=== PATIENT | female | born 1935 | race Caucasian/White ===

== ENCOUNTER 2017-01-31 13:53 | Emergency (ER) | payer MEDICARE, BC ==
[2017-01-31 14:23] VITALS: BP 137/62
--- NOTE | 2017-01-31 15:43 | EDM.PDOC ---
ED HPI GENERAL MEDICAL PROBLEM - General Chief Complaint: Lower Extremity Injury/Pain Stated Complaint: RIGHT CALF CONCERN FOR DVT Time Seen by Provider: 01/31/17 14:30 Source of Information: Reports: Patient, Family, Provider History Limitations: Reports: No Limitations - History of Present Illness INITIAL COMMENTS - FREE TEXT/NARRATIVE: 82-year-old female fell a few days ago, has had some intermittent hip and arm pain since that time. Those have improved but she has some bruising of the right lower extremity that was red and warm this morning. Some calls were made to her primary clinic and they sent her to the emergency room. No shortness of breath or fever. Right Groin Pain Score (Numeric/FACES): 1 - Related Data Allergies Allergy/AdvReac Type Severity Reaction Status Date / Time cefazolin Allergy not sure Verified 01/31/17 14:20 levofloxacin [From Levaquin] Allergy Rash Verified 01/31/17 14:20 clindamycin AdvReac Abdominal Verified 01/31/17 14:20 Cramps pork derived (porcine) AdvReac Diarrhea Verified 01/31/17 14:20 Home Meds: Home Meds *Potassium 20 meq PO TID 11/20/12 [History] Allopurinol [Zyloprim] 100 mg PO DAILY 11/20/12 [History] Metoprolol Tartrate 50 mg PO DAILY 11/20/12 [History] Phenytoin Sodium Extended [Dilantin] 100 mg PO BID 11/20/12 [History] Simvastatin [Zocor] 20 mg PO BEDTIME 11/20/12 [History] Warfarin [Coumadin] 3 mg PO ASDIRECTED 11/20/12 [History] Ascorbic Acid [Vitamin C] 500 mg PO DAILY 01/09/13 [History] Docusate Sodium [Colace] 100 mg PO DAILY 01/09/13 [History] Multivitamin [Daily Multiple Vitamin] 1 tab PO DAILY 01/09/13 [History] Acetaminophen 650 mg PO ASDIRECTED 03/29/16 [History] Cholecalciferol (Vitamin D3) [Vitamin D3] 2,000 units PO DAILY 03/29/16 [History ] Torsemide 20 mg PO BID 03/29/16 [History] Triamcinolone Acetonide [Kenalog 0.1% Crm] 1 applic TOP BID 03/29/16 [History] Past Medical History HEENT History: Reports: Hard of Hearing, Impaired Vision Cardiovascular History: Reports: Pacemaker, Other (See Below) 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 Respiratory History: Reports: Pneumonia, Recurrent Genitourinary History: Reports: Renal Calculus 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: Musculoskeletal History: Reports: Fracture Other Musculoskeletal History: broken pelvis Neurological History: Reports: Other (See Below) Other Neuro History: has a small brain tumor Dermatologic History: Reports: Cellulitis - Infectious Disease History Infectious Disease History: Reports: Chicken Pox, Measles, Mumps, Shingles - Past Surgical History HEENT Surgical History: Reports: Cataract Surgery Cardiovascular Surgical History: Reports: Pacer, Vascular Surgery GI Surgical History: Reports: Cholecystectomy Female Surgical History: Reports: Hysterectomy Neurological Surgical History: Reports: Other (See Below) Other Neurological Surgeries/Procedures: removal of part of brain tumor. Social & Family History - Tobacco Use Smoking Status *Q: Never Smoker Second Hand Smoke Exposure: No - Caffeine Use Caffeine Use: Reports: None - Alcohol Use Days Per Week of Alcohol Use: 0 - Recreational Drug Use Recreational Drug Use: No - Living Situation & Occupation Living situation: Reports: Occupation: Retired Review of Systems - Review of Systems Review Of Systems: See Below Constitutional: Denies: Fever Respiratory: Denies: Shortness of Breath Cardiovascular: Denies: Chest Pain GI/Abdominal: Denies: Abdominal Pain, Nausea, Vomiting Genitourinary: Reports: No Symptoms Musculoskeletal: Reports: Arm Pain, Other (Hip pain) Skin: Reports: Bruising, Erythema Neurological: Reports: No Symptoms ED EXAM, GENERAL - Physical Exam Exam: See Below Exam Limited By: No Limitations General Appearance: Alert, No Apparent Distress Respiratory/Chest: No Respiratory Distress, Lungs Clear Cardiovascular: Regular Rate, Rhythm GI/Abdominal: Non-Tender Extremities: Other (Patient has pitting edema both lower extremities, moderately worse on the right leg. Some superficial excoriations on the left castillo are present. On the right she has a fairly new bruise and hematoma along the lateral aspect of the lower right leg. There is some erythema around the bruise.) Course - Vital Signs Last Recorded V/S: Last Vital Signs Temp 97.0 F 01/31/17 14:17 Pulse 66 01/31/17 14:17 Resp 16 01/31/17 14:17 BP 137/62 01/31/17 14:17 Pulse Ox 97 01/31/17 14:17 - Orders/Labs/Meds Labs: Laboratory Tests 01/31/17 Range/Units 14:39 PT 27.5 H (9.5-12.0) sec INR 2.47 H (0.80-1.20) - Re-Assessments/Exams Free Text/Narrative Re-Assessment/Exam: 01/31/17 15:42 Pro time was checked and her INR is therapeutic at 2.47. A DVT study was done of the right leg and was negative. I suspect that this was an inflammatory response to the bruise as she has less erythema and warmth at this time and no fever but they were concerned about an infection. She was given cephalexin to take 3 times a day if it worsens, she is going to give it 24 hours of conservative watching however and if it continues to improve she will not take antibiotic. She is going to call her primary provider when she begins antibiotic if necessary. Departure - Departure Time of Disposition: 17:03 Disposition: Home, Self-Care 01 Condition: Good Clinical Impression: Cellulitis of leg without foot, right Hematoma of leg Qualifiers: Encounter type: initial encounter Laterality: right Qualified Code(s): S80.11XA - Contusion of right lower leg, initial encounter - Discharge Information Instructions: Cellulitis, Adult Referrals: Evelyn Canas NP [Primary Care Provider] - Forms: ED Department Discharge Care Plan Goals: Continue your regular medications, and consider adding antibiotic as prescribed if erythema or discomfort of the leg worsens. Also if you develop a fever you should take the antibiotic. Return to the emergency room anytime if worsening or concerns.
--- NOTE | 2017-02-01 09:19 | US ---
VL Duplex Lwr Ext Veins Ltd Rt FINDINGS: Duplex imaging was performed from the right common femoral through the popliteal veins. The veins demonstrate complete compressibility without evidence of intraluminal thrombus. There is shraddha l phasic variation of the waveforms with respiration. There is augmented flow with calf compression. The patient reports surgery in the region of the right groin. In the groin there is a complex fluid c ollection measuring 5.4 x 1.5 x 2.0 cm. There is no internal vascularity. The finding likely reflects a hematoma. IMPRESSION: 1. There is no evidence for right lower extremity deep venous thrombosis. 2. Complex fluid collection right groin likely representing a hematoma. Clinical correlation recommen ded.
== END 2017-01-31 16:15 | disposition home or self-care (01) ==
LOC: JP.ED 13:53
DX: S80.11XA Contusion of right lower leg, initial encounter (principal); L03.115 Cellulitis of right lower limb; W19.XXXA Unspecified fall, initial encounter; Z88.1 Allergy status to other antibiotic agents; Z88.8 Allergy status to other drugs, medicaments and biological substances; Z91.018 Allergy to other foods; Z79.899 Other long term (current) drug therapy; Z79.01 Long term (current) use of anticoagulants
CPT/HCPCS: 36415; 85610; 93971-26; 93971-RT; 99283; 99284-25

== ENCOUNTER 2017-09-03 14:04 | Emergency (ER) | payer MEDICARE, BC ==
--- NOTE | 2017-09-03 15:18 | EDM.PDOC ---
ED HPI GENERAL MEDICAL PROBLEM - General Chief Complaint: Lower Extremity Injury/Pain Stated Complaint: SWELLING IN LEG Time Seen by Provider: 09/03/17 15:05 Source of Information: Reports: Patient, Old Records, RN History Limitations: Reports: No Limitations - History of Present Illness INITIAL COMMENTS - FREE TEXT/NARRATIVE: 82 yo female here with onset yesterday of L calf pain. Pain was worse last night. No fever. Calf is more swollen than normal. No SOB or pleuritic chest pain. Applied "Flexol" topically last night with some relief. Has a pHx of cellulitis in that leg. 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 (see below) (OTC Flexol(menthol and methylsalicylate)) - Related Data Allergies Allergy/AdvReac Type Severity Reaction Status Date / Time cefazolin Allergy not sure Verified 09/03/17 14:32 levofloxacin [From Levaquin] Allergy Rash Verified 09/03/17 14:32 clindamycin AdvReac Abdominal Verified 09/03/17 14:32 Cramps pork derived (porcine) AdvReac Diarrhea Verified 09/03/17 14:32 Home Meds: Home Meds *Potassium 20 meq PO TID 11/20/12 [History] Allopurinol [Zyloprim] 100 mg PO DAILY 11/20/12 [History] Metoprolol Tartrate 50 mg PO DAILY 11/20/12 [History] Phenytoin Sodium Extended [Dilantin] 100 mg PO BID 11/20/12 [History] Simvastatin [Zocor] 20 mg PO BEDTIME 11/20/12 [History] Warfarin [Coumadin] 3 mg PO ASDIRECTED 11/20/12 [History] Ascorbic Acid [Vitamin C] 500 mg PO DAILY 01/09/13 [History] Docusate Sodium [Colace] 100 mg PO DAILY 01/09/13 [History] Multivitamin [Daily Multiple Vitamin] 1 tab PO DAILY 01/09/13 [History] Acetaminophen 650 mg PO ASDIRECTED 03/29/16 [History] Cholecalciferol (Vitamin D3) [Vitamin D3] 2,000 units PO DAILY 03/29/16 [History ] Torsemide 20 mg PO BID 03/29/16 [History] Past Medical History HEENT History: Reports: Hard of Hearing, Impaired Vision Cardiovascular History: Reports: Pacemaker, Other (See Below) 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 Respiratory History: Reports: Pneumonia, Recurrent Genitourinary History: Reports: Renal Calculus 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: Musculoskeletal History: Reports: Fracture Other Musculoskeletal History: broken pelvis Neurological History: Reports: Other (See Below) Other Neuro History: has a small brain tumor Dermatologic History: Reports: Cellulitis - Infectious Disease History Infectious Disease History: Reports: Chicken Pox, Measles, Mumps, Shingles - Past Surgical History HEENT Surgical History: Reports: Cataract Surgery Cardiovascular Surgical History: Reports: Pacer, Vascular Surgery GI Surgical History: Reports: Cholecystectomy Female Surgical History: Reports: Hysterectomy Neurological Surgical History: Reports: Other (See Below) Other Neurological Surgeries/Procedures: removal of part of brain tumor. Social & Family History - Tobacco Use Smoking Status *Q: Never Smoker - Caffeine Use Caffeine Use: Reports: Soda - Recreational Drug Use Recreational Drug Use: No - Living Situation & Occupation Living situation: Reports: Occupation: Retired Review of Systems - Review of Systems Review Of Systems: See Below Constitutional: Reports: No Symptoms Cardiovascular: Reports: Edema (L calf slightly swollen) Musculoskeletal: Reports: Other (L calf pain) Skin: Reports: No Symptoms Neurological: Reports: No Symptoms ED EXAM, GENERAL - Physical Exam Exam: See Below Exam Limited By: No Limitations General Appearance: Alert, WD/WN, No Apparent Distress Eye Exam: Bilateral Eye: Normal Inspection Ears: Normal External Exam, Normal Canal, Hearing Grossly Normal Ear Exam: Bilateral Ear: Auricle Normal, Canal Normal Nose: Normal Inspection, Normal Mucosa, No Blood Throat/Mouth: Normal Inspection, Normal Lips, Normal Oropharynx, Normal Voice, No Airway Compromise Head: Atraumatic, Normocephalic Neck: Normal Inspection, Supple, Non-Tender Respiratory/Chest: No Respiratory Distress, Lungs Clear, Normal Breath Sounds, No Accessory Muscle Use Cardiovascular: Regular Rate, Rhythm Extremities: Pedal Edema (Trace edema of the L calf/castillo), Other (L calf more tender than the R one. No increased warmth.) Neurological: Alert, Oriented, CN II-XII Intact, Normal Cognition Psychiatric: Normal Affect, Normal Mood Skin Exam: Warm, Dry, Intact, Normal Color, No Rash Lymphatic: No Adenopathy Course - Vital Signs Last Recorded V/S: Last Vital Signs Temp 36.5 C 09/03/17 14:36 Pulse 63 09/03/17 16:27 Resp 16 09/03/17 16:27 BP 151/57 H 09/03/17 16:27 Pulse Ox 97 09/03/17 16:27 - Orders/Labs/Meds Orders: Active Orders 24 hr Category Date Time Status VL Duplex Lwr Ext Veins Ltd Lt [US] Stat Exams 09/03/17 16:09 Taken Labs: Laboratory Tests 09/03/17 09/03/17 09/03/17 Range/Units 15:24 15:24 15:24 WBC 7.5 (4.5-11.0) K/uL RBC 4.38 (3.30-5.50) M/uL Hgb 12.4 (12.0-15.0) g/dL Hct 38.4 (36.0-48.0) % MCV 88 (80-98) fL MCH 28 (27-31) pg MCHC 32 (32-36) % Plt Count 172 (150-400) K/uL D-Dimer, Quantitative 732 H (0.0-400.0) ng/mL C-Reactive Protein 0.97 H (0.0-0.3) mg/dL - Radiology Interpretation Free Text/Narrative:: Venous doppler negative of the L leg. Departure - Departure Time of Disposition: 17:30 Disposition: Home, Self-Care 01 Condition: Good Clinical Impression: Cellulitis of leg, left - Discharge Information Referrals: Jose Bhatti MD [Primary Care Provider] - Forms: ED Department Discharge - My Orders Last 24 Hours: My Active Orders 09/03/17 16:09 VL Duplex Lwr Ext Veins Ltd Lt [US] Stat - Assessment/Plan Last 24 Hours: My Active Orders 09/03/17 16:09 VL Duplex Lwr Ext Veins Ltd Lt [US] Stat
[2017-09-03 16:28] VITALS: BP 151/57
[2017-09-03] MEDS ORDERED: Sulfamethoxazole/Trimethoprim 800-160 MG Tab PO ONE (17:32)
--- NOTE | 2017-09-04 08:49 | US ---
VL Duplex Lwr Ext Veins Ltd Lt INDICATION: elevated d-dimer, calf pain and swelling TECHNIQUE: The deep venous system of left leg imaged, including the common femoral, deep femoral, sup erficial femoral, popliteal, and where visualized, calf veins. Imaging included duplex, compression , and augmentation. COMPARISON: None FINDINGS: There is no evidence of deep venous thrombosis. Other incidental findings: None. IMPRESSION: No evidence of deep venous thrombosis.
== END 2017-09-03 18:03 | disposition home or self-care (01) ==
LOC: JP.ED 14:04
DX: L03.116 Cellulitis of left lower limb (principal); Z79.899 Other long term (current) drug therapy; Z88.1 Allergy status to other antibiotic agents
CPT/HCPCS: 36415; 85027; 85379; 86140; 93971; 99284; A9270

== ENCOUNTER 2018-03-08 16:32 | Inpatient (IN) | payer MEDICARE, BC ==
[2018-03-08] MEDS ORDERED: Albuterol 0.083% 2.5 MG/3 ML Neb Soln NEB PRN (17:46)
[2018-03-08] MEDS ORDERED: Polyethylene Glycol 3350 Powder 17 GM Packet PO PRN (17:48)
[2018-03-08] MEDS ORDERED: Magnesium Hydroxide 400 MG/5 ML Susp 30 ML Cup PO PRN (17:48)
[2018-03-08] MEDS ORDERED: Ondansetron 4 MG Tab.DIS PO PRN (17:48)
[2018-03-08] MEDS ORDERED: Sodium Chloride 0.9% 10 ML Syringe FLUSH PRN (17:48)
--- NOTE | 2018-03-08 18:01 | PCM.HP ---
H&P History of Present Illness - General Date of Service: 03/08/18 Admit Problem/Dx: Admission Diagnosis/Problem Admission Diagnosis/Problem Acute cystitis with hematuria Source of Information: Patient, Family, Provider History Limitations: Reports: No Limitations - History of Present Illness Initial Comments - Free Text/Narative: Jocelyn presents to the hospital as a direct admission from the clinic. She presented to the clinic with concerns about persistent and severe bilateral lower extremity edema. While in the clinic she was noted to have a fever and appeared very short of breath. She reports chronic difficulty with lower extremity edema which has not been responding to medical management though she has not been completely compliant with the mechanical wrappings. She reports onset of shortness of breath last night as well as a mild nonproductive cough. She doesn't think she's been having any fevers and did not feel warm when her temperature was noted to be elevated to greater than 100 in the clinic today. No complaints of chest pain. She sleeps sitting up though she's not sure if she has orthopnea. She does report weakness and fatigue but these are chronic and not dramatically different than usual. Appetite is not great but that's her usual. No change in bowel or bladder habits and no dysuria or increased urinary frequency. In the clinic she had a chest x-ray which showed a moderate size right pleural effusion. White count was normal. Kidney function is near baseline with a GFR in the upper 30s. She was noted to be febrile and tachypneic. - Related Data Allergies/Adverse Reactions: Allergies Allergy/AdvReac Type Severity Reaction Status Date / Time cefazolin Allergy not sure Verified 02/17/18 18:21 levofloxacin [From Levaquin] Allergy Rash Verified 02/17/18 18:21 clindamycin AdvReac Abdominal Verified 02/17/18 18:21 Cramps pork derived (porcine) AdvReac Diarrhea Verified 02/17/18 18:21 Home Medications: Home Meds Allopurinol [Zyloprim] 100 mg PO DAILY 11/20/12 [History] Metoprolol Tartrate 50 mg PO DAILY 11/20/12 [History] Phenytoin Sodium Extended [Dilantin] 100 mg PO DAILY 11/20/12 [History] Docusate Sodium [Colace] 100 mg PO DAILY 01/09/13 [History] Multivitamin [Daily Multiple Vitamin] 1 tab PO DAILY 01/09/13 [History] Acetaminophen 650 mg PO Q4H PRN 03/29/16 [History] Cholecalciferol (Vitamin D3) [Vitamin D3] 2,000 units PO DAILY 03/29/16 [History ] Torsemide 40 mg PO BID 03/29/16 [History] Ascorbic Acid [Vitamin C] 500 mg PO DAILY 02/18/18 [History] Phenytoin 50 mg PO BEDTIME 02/18/18 [History] Potassium Chloride [Klor-Con 10] 20 meq PO BIDAC 02/18/18 [History] Warfarin Sodium 1 mg PO ASDIRECTED 03/06/18 [History] Gabapentin [Neurontin] 300 mg PO BID 03/08/18 [History] Past Medical History HEENT History: Reports: Hard of Hearing, Impaired Vision Cardiovascular History: Reports: Afib, Heart Failure, Pacemaker, Other (See Below) 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 subdural hematoma Endocrine/Metabolic History: Reports: Obesity/BMI 30+ Hematologic History: Reports: Anticoagulation Therapy, Other (See Below) Other Hematologic History: dyslipidemia Dermatologic History: Reports: Cellulitis, Venous Stasis Dermatitis - Infectious Disease History Infectious Disease History: Reports: Chicken Pox, Measles, Shingles - Past Surgical History Head Surgeries/Procedures: Reports: None HEENT Surgical History: Reports: Cataract Surgery Cardiovascular Surgical History: Reports: Pacer, Vascular Surgery GI Surgical History: Reports: Cholecystectomy Female Surgical History: Reports: Hysterectomy Neurological Surgical History: Reports: Other (See Below) Other Neurological Surgeries/Procedures: removal of part of brain tumor. Musculoskeletal Surgical History: Reports: None Dermatological Surgical History: Reports: None Social & Family History - Family History Family Medical History: Noncontributory - Tobacco Use Smoking Status *Q: Never Smoker Second Hand Smoke Exposure: No - Caffeine Use Caffeine Use: Reports: Soda Other Caffeine Use: Kelli Brooke - Recreational Drug Use Recreational Drug Use: No - Living Situation & Occupation Living situation: Reports: Occupation: Retired H&P Review of Systems - Review of Systems: Review Of Systems: See Below Free Text/Narrative: A complete 12 point review of systems was obtained. Pertinent positives and negatives are noted in the history of present illness. All other systems were reviewed and were negative except as noted. Exam - Exam Exam: See Below - Vital Signs Vital Signs: Last Vital Signs Temp 37.1 C 03/08/18 17:00 Pulse 67 03/08/18 17:00 Resp 18 03/08/18 17:00 BP 150/63 H 03/08/18 17:00 Pulse Ox 95 03/08/18 17:00 Weight: 80.059 kg - Exam Quality Assessment: No: Supplemental Oxygen General: Alert, Oriented, Cooperative, Mild Distress (increased work of breathing) HEENT: No: Mucosa Moist & [place] (dry), Scleral Icterus Neck: Supple, Trachea Midline. No: Lymphadenopathy Lungs: Decreased Breath Sounds (moderate with expiration), Other (nearly persistent coughing). No: Normal Respiratory Effort (increased work of breathing ), Wheezing Cardiovascular: Regular Rate, Regular Rhythm, Systolic Murmur, Diastolic Murmur , Gallop/S3 GI/Abdominal Exam: Normal Bowel Sounds, Soft, Non-Tender, No Distention Extremities: Pedal Edema, Increased Warmth (inner thighs) Skin: Warm, Dry, Rash (papular rash medial and lateral thighs) Neuro Extensive - Mental Status: Alert, Oriented x3, Nl Response to Commands Neuro Extensive - Motor, Sensory, Reflexes: CN II-XII Intact. No: Dysarthria, Abnormal Motor, Tremor Psychiatric: Alert, Normal Affect - Patient Data Lab Results Last 24 hrs: White count is 8000, hemoglobin normal and platelets normal Sodium and potassium are normal Creatinine is 1.2 with a GFR in the mid-30s Urinalysis shows greater than 100 white blood cells, 10-20 red blood cells and many bacteria Lactic acid is normal Influenza was negative Imaging Impressions Last 24 hrs: Chest x-ray - radiologist read noted and moderate right pleural effusion noted. There is some concern this is loculated on the radiologist interpretation. CT scan of the chest - images personally reviewed - right pleural effusion is noted but does not appear to be loculated. There is a pulmonary nodule in the right upper lobe. Heart size is enlarged. She has a pacemaker in place. No acute findings on the left side of the chest. - Problem List (1) Acute cystitis with hematuria SNOMED Code(s): 16080406 ICD Code: N30.01 - ACUTE CYSTITIS WITH HEMATURIA Status: Acute Current Visit: Yes (2) Bronchitis SNOMED Code(s): 11834835 ICD Code: J40 - BRONCHITIS, NOT SPECIFIED ACUTE OR CHRONIC Status: Acute Current Visit: Yes (3) Chronic diastolic (congestive) heart failure SNOMED Code(s): 228353813, 614632652 ICD Code: I50.32 - CHRONIC DIASTOLIC (CONGESTIVE) HEART FAILURE Status: Chronic Current Visit: No (4) Severe tricuspid regurgitation SNOMED Code(s): 759384836 ICD Code: I07.1 - RHEUMATIC TRICUSPID INSUFFICIENCY Status: Chronic Current Visit: No (5) Hx of deep venous thrombosis SNOMED Code(s): 340129394 ICD Code: Z86.718 - PERSONAL HISTORY OF OTHER VENOUS THROMBOSIS AND EMBOLISM Status: Chronic Current Visit: No (6) CKD (chronic kidney disease), stage III SNOMED Code(s): 304916506 ICD Code: N18.3 - CHRONIC KIDNEY DISEASE, STAGE 3 (MODERATE) Status: Chronic Current Visit: Yes Problem List Initiated/Reviewed/Updated: Yes Orders Last 24hrs: Active Orders 24 hr Category Date Time Status Patient Status [ADT] Routine ADT 03/08/18 17:48 Ordered Bedrest Bedside Commode [RC] ASDIRECTED Care 03/08/18 17:48 Ordered Intake and Output [RC] QSHIFT Care 03/08/18 17:50 Ordered Notify Provider Vital Signs [RC] ASDIRECTED Care 03/08/18 17:50 Ordered Oxygen Therapy [RC] PRN Care 03/08/18 17:48 Ordered RT Aerosol Therapy [RC] ASDIRECTED Care 03/08/18 17:46 Ordered VTE/DVT Education [RC] Per Unit Routine Care 03/08/18 17:48 Ordered Vital Signs [RC] Q4H Care 03/08/18 17:48 Ordered 2 Gram Sodium Diet [DIET] Diet 03/08/18 Dinner Ordered BASIC METABOLIC PANEL,BMP [CHEM] AM Lab 03/09/18 05:11 Ordered CBC W/O DIFF,HEMOGRAM [HEME] AM Lab 03/09/18 05:11 Ordered CULTURE BLOOD [BC] Urgent Lab 03/08/18 17:45 Ordered CULTURE BLOOD [BC] Urgent Lab 03/08/18 17:45 Ordered CULTURE URINE [RM] Routine Lab 03/08/18 17:46 Ordered INFLUENZA A+B AG SCREEN [RM] Routine Lab 03/08/18 17:44 Ordered INR,PT,PROTHROMBIN TIME [COAG] AM Lab 03/09/18 05:11 Ordered INR,PT,PROTHROMBIN TIME [COAG] Urgent Lab 03/08/18 17:44 Ordered LACTIC ACID [CHEM] Routine Lab 03/08/18 17:48 Ordered Acetaminophen [Tylenol] Med 03/08/18 17:46 Ordered 650 mg PO Q4H PRN Albuterol [Proventil Neb Soln] Med 03/08/18 17:46 Ordered 2.5 mg NEB Q4H PRN Albuterol [Proventil Neb Soln] Med 03/08/18 21:00 Ordered 2.5 mg NEB QIDRT Allopurinol [Zyloprim] Med 03/09/18 09:00 Ordered 100 mg PO DAILY Azithromycin [Zithromax] Med 03/09/18 09:00 Ordered 500 mg PO DAILY Azithromycin [Zithromax] 500 mg Med 03/08/18 17:52 Ordered Sodium Chloride 0.9% [Normal Saline] 250 ml IV ONETIME Docusate Sodium [Colace] Med 03/09/18 09:00 Ordered 100 mg PO DAILY Gabapentin [Neurontin] Med 03/08/18 21:00 Ordered 300 mg PO BID Magnesium Hydroxide [Milk of Magnesia] Med 03/08/18 17:48 Ordered 30 ml PO Q12H PRN Metoprolol Tartrate [Lopressor] Med 03/09/18 09:00 Ordered 50 mg PO DAILY Ondansetron [Zofran ODT] Med 03/08/18 17:48 Ordered 4 mg PO Q6H PRN Phenytoin Med 03/09/18 09:00 Ordered 100 mg PO DAILY Phenytoin [Phenytoin] Med 03/08/18 21:00 Ordered 50 mg PO BEDTIME Polyethylene Glycol 3350 [MiraLAX] Med 03/08/18 17:48 Ordered 17 gm PO DAILY PRN Potassium Chloride [Klor-Con 10] Med 03/09/18 07:30 Ordered 20 meq PO BIDAC Sodium Chloride 0.9% [Saline Flush] Med 03/08/18 17:48 Ordered 10 ml FLUSH ASDIRECTED PRN Torsemide [Demadex] Med 03/08/18 21:00 Ordered 40 mg PO BID cefTRIAXone [Rocephin] 2 gm Med 03/08/18 18:00 Ordered Sodium Chloride 0.9% [Normal Saline] 50 ml IV Q24H Blood Culture x2 Reflex Set [OM.PC] Urgent Oth 03/08/18 17:44 Ordered Saline Lock Insert [OM.PC] Routine Oth 03/08/18 17:48 Ordered Resuscitation Status Routine Resus Stat 03/08/18 17:48 Ordered Medication Orders Acetaminophen (Tylenol) 650 mg PO Q4H PRN PRN Reason: Pain/Fever Albuterol (Proventil Neb Soln) 2.5 mg NEB Q4H PRN PRN Reason: shortness of breath/wheezing Albuterol (Proventil Neb Soln) 2.5 mg NEB QIDRT DOUGLAS Allopurinol (Zyloprim) 100 mg PO DAILY DOUGLAS Azithromycin (Zithromax) 500 mg PO DAILY DOUGLAS Docusate Sodium (Colace) 100 mg PO DAILY DOUGLAS Gabapentin (Neurontin) 300 mg PO BID DOUGLAS Azithromycin 500 mg/ Sodium (Chloride) 250 mls @ 250 mls/hr IV ONETIME ONE Stop: 03/08/18 18:51 Ceftriaxone Sodium 2 gm/ (Sodium Chloride) 50 mls @ 100 mls/hr IV Q24H DOUGLAS Magnesium Hydroxide (Milk Of Magnesia) 30 ml PO Q12H PRN PRN Reason: Constipation Metoprolol Tartrate (Lopressor) 50 mg PO DAILY [facility] Non-Formulary Medication (Phenytoin [Phenytoin]) 50 mg PO BEDTIME DOUGLAS Ondansetron HCl (Zofran Odt) 4 mg PO Q6H PRN PRN Reason: Nausea able to take PO Phenytoin Sodium (Phenytoin) 100 mg PO DAILY [facility] Polyethylene Glycol (Miralax) 17 gm PO DAILY PRN PRN Reason: Constipation Potassium Chloride (Klor-Con M20) 20 meq PO BIDAC [facility] Sodium Chloride (Saline Flush) 10 ml FLUSH ASDIRECTED PRN PRN Reason: Keep Vein Open Torsemide (Demadex) 40 mg PO BID [facility] Assessment/Plan Comment:: ASSESSMENT AND PLAN - Acute cystitis - no symptoms but urine is strongly suggestive of infection and this could be the source of the fever. She may have a component of bronchitis but I suspect respiratory issues are related to the large pleural effusion. -Urine culture -Empiric antibiotic's with ceftriaxone Large right pleural effusion - history of heart failure with preserved ejection fraction and severe tricuspid regurgitation. She has both systolic and diastolic murmurs and I'm concerned she may have some aortic regurgitation. With her progressive lower extremity edema she may have had some decompensation of her heart disease. She will need an echocardiogram for further evaluation. She may need thoracentesis tomorrow. -Discuss feasibility of thoracentesis in the morning -Supplement oxygen if needed -Symptomatic management for cough Heart failure with preserved ejection fraction - History of severe tricuspid regurgitation but has been well compensated recently. Examination concerning for multiple valvular abnormalities. She has had progression of her lower extremity edema that has not been improving despite increases in her diuretics. -Continue diuretics -Mechanical management of lower extremity edema with Dr. 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 INR is 1.7 today and I will hold off on warfarin dosing tonight NK she does have a thoracentesis in the morning. Stage III chronic kidney disease - creatinine down slightly from baseline. Maintenance issues - - DVT prophylaxis - warfarin - GI prophylaxis - not indicated - Nutrition - low sodium - Das catheter - not indicated CODE STATUS - DNR/DNI Admission justification - This patient will be admitted for inpatient services and is medically appropriate meeting medical necessity for inpatient admission as outlined in my documentation. I reasonably expect the patient will require inpatient services that span a period time over 2 midnights. I reasonably expect this patient to be discharged or transferred within 96 hours after admission to the [facility]. Disposition - I would anticipate discharge home with home care versus possibly the snf Primary care physician - Dr Kit Sanderson M.D.
[2018-03-08] MEDS: cefTRIAXone 2 GM in Sodium Chloride 0.9% 50 ML IV SCH (18:43)
[2018-03-08] MEDS ORDERED: Azithromycin 500 MG in Sodium Chloride 0.9% 250 ML IV ONE (19:00)
[2018-03-08] MEDS ORDERED: PHENYTOIN 50 MG PO SCH (21:00)
[2018-03-08] MEDS ORDERED: Phenytoin 25 MG/1 ML Susp ML 237 ML Bottle PO ONE (21:00)
[2018-03-08] MEDS: Gabapentin 300 MG Cap PO SCH (21:13)
[2018-03-08] MEDS: Torsemide 20 MG Tab PO SCH (21:13)
[2018-03-08] MEDS: Albuterol 0.083% 2.5 MG/3 ML Neb Soln NEB SCH (21:13)
[2018-03-09] MEDS: Albuterol 0.083% 2.5 MG/3 ML Neb Soln NEB SCH ×5 (07:13→20:56)
[2018-03-09] MEDS ORDERED: Potassium Chloride 20 MEQ Tab.ER PO SCH (07:30)
[2018-03-09] MEDS: Azithromycin 250 MG Tab PO SCH (08:21)
[2018-03-09] MEDS: Gabapentin 300 MG Cap PO SCH ×2 (08:21→20:52)
[2018-03-09] MEDS: Docusate Sodium 100 MG Cap PO SCH (08:21)
[2018-03-09] MEDS: Phenytoin 100 MG Cap.ER PO SCH (08:21)
[2018-03-09] MEDS: Potassium Chloride 20 MEQ Tab.ER PO SCH ×2 (08:21→17:14)
[2018-03-09] MEDS: Torsemide 20 MG Tab PO SCH ×2 (08:21→20:51)
[2018-03-09] MEDS: Allopurinol 100 MG Tab PO SCH (08:22)
[2018-03-09] MEDS ORDERED: Metoprolol Tartrate 50 MG Tab PO SCH (09:00)
--- NOTE | 2018-03-09 12:10 | CONS ---
DATE OF SERVICE: 03/09/2018 REFERRING PHYSICIAN: CONSULTING PHYSICIAN: Renan Nevarez MD REASON FOR CONSULTATION: Evaluation of the lower extremities. HISTORY OF PRESENT ILLNESS: This is a pleasant 83-year-old female who I have been asked to consult from Dr. Sanderson due to long-standing and ongoing lymphedema and pressure ulcers. This is significantly modified by her ongoing congestive heart failure, which is right heart failure and probably has a now component of left heart failure. The patient has been getting compression wrappings, but there have been some compliance issues with this. She also has some fever, which Dr. Sanderson continues to be working on. PAST MEDICAL HISTORY: Extensive include pacemaker, heart failure as described above, atrial fibrillation, history of pneumonia, diarrhea, kidney stones, subdural hematoma, chronic anticoagulation, cellulitis history, venous stasis dermatitis with history of radiofrequency ablation. PAST SURGICAL HISTORY: Please see Dr. Sanderson' report. SOCIAL HISTORY: She lives at home alone, but does recently have assisted home health care seeker. REVIEW OF SYSTEMS: GENERAL: The patient is stable. HEENT: No symptoms. RESPIRATORY: Some shortness of breath. CARDIOVASCULAR: No chest pain. GASTROINTESTINAL: No specific concerns. NEUROLOGICAL: No changes. PSYCH: No changes. The remainder of review of systems is reviewed and is negative. PHYSICAL EXAMINATION: VITAL SIGNS: Temperature 99.4, blood pressure 133/50, pulse 71, respirations 16, 92% on room air. GENERAL: The patient is resting comfortably. HEENT: Pupils are equal. NECK: Supple. LUNGS: Poor inspiratory effort bilaterally. CARDIOVASCULAR: Regular rhythm and rate. NEUROLOGICAL: Oriented x3. PSYCH: No gross depression. Legs show venous stasis ulcers with lymphedema with a benoit boot bilaterally. LABORATORY RESULTS: Show normal white blood cell count. ASSESSMENT: 1. Lymphedema, chronic. 2. Venous stasis ulcers. PLAN: The patient's underlying etiology of her lymphedema is most likely idiopathic combined with her ongoing and worsening congestive heart failure. She does have a benoit boot on, we will not compress this further as she has controlled congestive heart failure, however, causing a significant fluid overload might be an issue. We will continue to follow her daily. We will keep the dressings intact for the next couple of days and see how she does with respect to this. Renan Nevarez MD /[id number]
--- NOTE | 2018-03-09 12:58 | PCM.PN ---
- General Info Date of Service: 03/09/18 Subjective Update: There were no acute events overnight. CT scan of the chest did reveal a potentially loculated right pleural effusion. This morning she had a thoracentesis with 700 mL of straw-colored fluid removed. Respiratory status has improved since the thoracentesis. Still has a mild cough but in general is feeling better. Lower extremity edema stable and venous stasis dermatitis is slightly better. No fevers overnight. Urine culture is growing a gram-negative cheo. Functional Status: Reports: Pain Controlled, Tolerating Diet - Review of Systems General: Denies: Fever Pulmonary: Reports: Shortness of Breath, Cough Cardiovascular: Reports: Edema - Patient Data Vitals - Most Recent: Last Vital Signs Temp 37.8 C 03/09/18 11:17 Pulse 61 03/09/18 11:17 Resp 16 03/09/18 11:17 BP 112/52 L 03/09/18 11:17 Pulse Ox 91 L 03/09/18 11:17 Weight - Most Recent: 80.059 kg I&O - Last 24 Hours: Intake & Output 03/08/18 03/09/18 03/09/18 22:59 06:59 14:59 Intake Total 300 500 Output Total 150 Balance 300 350 Lab Results Last 24 Hours: Laboratory Results - last 24 hr 03/08/18 03/08/18 03/09/18 Range/Units 17:44 17:48 05:15 WBC 6.6 (4.5-11.0) K/uL RBC 3.91 (3.30-5.50) M/uL Hgb 11.0 L (12.0-15.0) g/dL Hct 33.9 L (36.0-48.0) % MCV 87 (80-98) fL MCH 28 (27-31) pg MCHC 32 (32-36) % Plt Count 184 (150-400) K/uL PT 19.1 H (9.5-12.0) sec INR 1.79 H (0.80-1.20) Sodium (140-148) mmol/L Potassium (3.6-5.2) mmol/L Chloride (100-108) mmol/L Carbon Dioxide (21-32) mmol/L Anion Gap (5.0-14.0) mmol/L BUN (7-18) mg/dL Creatinine (0.6-1.0) mg/dL Est Cr Clr Drug Dosing mL/min Estimated GFR (MDRD) (>60) Glucose (74-106) mg/dL Lactic Acid 1.6 (0.4-2.0) mmol/L Calcium (8.5-10.1) mg/dL 03/09/18 03/09/18 Range/Units 05:15 05:15 WBC (4.5-11.0) K/uL RBC (3.30-5.50) M/uL Hgb (12.0-15.0) g/dL Hct (36.0-48.0) % MCV (80-98) fL MCH (27-31) pg MCHC (32-36) % Plt Count (150-400) K/uL PT 19.4 H (9.5-12.0) sec INR 1.82 H (0.80-1.20) Sodium 135 L (140-148) mmol/L Potassium 4.2 (3.6-5.2) mmol/L Chloride 100 (100-108) mmol/L Carbon Dioxide 24 (21-32) mmol/L Anion Gap 15.2 H (5.0-14.0) mmol/L BUN 30 H D (7-18) mg/dL Creatinine 1.6 H D (0.6-1.0) mg/dL Est Cr Clr Drug Dosing 21.44 mL/min Estimated GFR (MDRD) 31 L (>60) Glucose 107 H (74-106) mg/dL Lactic Acid (0.4-2.0) mmol/L Calcium 8.6 (8.5-10.1) mg/dL Yony Results Last 24 Hours: Microbiology 03/08/18 17:51 Urine Culture - Preliminary Urine, Clean Catch 03/08/18 17:44 Influenza Type A Antigen Screen - Final Nasal, Unspecified NEGATIVE INFLUENZA A VIRUS AG Influenza Type B Antigen Screen - Final NEGATIVE INFLUENZA B VIRUS AG Med Orders - Current: Current Medications Acetaminophen (Tylenol) 650 mg PO Q4H PRN PRN Reason: Pain/Fever Albuterol (Proventil Neb Soln) 2.5 mg NEB Q4H PRN PRN Reason: shortness of breath/wheezing Albuterol (Proventil Neb Soln) 2.5 mg NEB QIDRT [facility] Last Admin: 03/09/18 10:46 Dose: 2.5 mg Allopurinol (Zyloprim) 100 mg PO DAILY [facility] Last Admin: 03/09/18 08:22 Dose: 100 mg Azithromycin (Zithromax) 500 mg PO DAILY [facility] Last Admin: 03/09/18 08:21 Dose: 500 mg Docusate Sodium (Colace) 100 mg PO DAILY [facility] Last Admin: 03/09/18 08:21 Dose: 100 mg Gabapentin (Neurontin) 300 mg PO BID [facility] Last Admin: 03/09/18 08:21 Dose: 300 mg Ceftriaxone Sodium 2 gm/ (Sodium Chloride) 50 mls @ 100 mls/hr IV Q24H [facility] Last Admin: 03/08/18 18:43 Dose: 100 mls/hr Magnesium Hydroxide (Milk Of Magnesia) 30 ml PO Q12H PRN PRN Reason: Constipation Metoprolol Tartrate (Lopressor) 50 mg PO DAILY [facility] Last Admin: 03/09/18 08:22 Dose: 50 mg Non-Formulary Medication (Phenytoin [Phenytoin]) 50 mg PO BEDTIME [facility] Ondansetron HCl (Zofran Odt) 4 mg PO Q6H PRN PRN Reason: Nausea able to take PO Phenytoin Sodium (Phenytoin) 100 mg PO DAILY [facility] Last Admin: 03/09/18 08:21 Dose: 100 mg Polyethylene Glycol (Miralax) 17 gm PO DAILY PRN PRN Reason: Constipation Potassium Chloride (Klor-Con M20) 20 meq PO BIDMEALS [facility] Last Admin: 03/09/18 08:21 Dose: 20 meq Sodium Chloride (Saline Flush) 10 ml FLUSH ASDIRECTED PRN PRN Reason: Keep Vein Open Torsemide (Demadex) 40 mg PO BID [facility] Last Admin: 03/09/18 08:21 Dose: 40 mg Discontinued Medications Azithromycin 500 mg/ Sodium (Chloride) 250 mls @ 250 mls/hr IV ONETIME ONE Stop: 03/08/18 19:59 Last Admin: 03/08/18 19:52 Dose: 250 mls/hr Phenytoin Sodium (Dilantin-125 Susp) 50 mg PO ONETIME ONE Stop: 03/08/18 21:01 Last Admin: 03/08/18 21:13 Dose: 50 mg - Exam Quality Assessment: No: Supplemental Oxygen General: Alert, Oriented, Cooperative, No Acute Distress Lungs: Normal Respiratory Effort, Crackles (both bases) Cardiovascular: Regular Rate, Regular Rhythm, Murmurs GI/Abdominal Exam: Soft, No Distention Extremities: Pedal Edema Skin: Rash (erythema both medial thighs near knees) Psy/Mental Status: Alert, Normal Affect - Problem List & Annotations (1) Acute cystitis with hematuria SNOMED Code(s): 67415636 Code(s): N30.01 - ACUTE CYSTITIS WITH HEMATURIA Status: Acute Current Visit: Yes (2) Bronchitis SNOMED Code(s): 75333372 Code(s): J40 - BRONCHITIS, NOT SPECIFIED ACUTE OR CHRONIC Status: Acute Current Visit: Yes (3) Chronic diastolic (congestive) heart failure SNOMED Code(s): 883304404, 818251135 Code(s): I50.32 - CHRONIC DIASTOLIC (CONGESTIVE) HEART FAILURE Status: Chronic Current Visit: No (4) Severe tricuspid regurgitation SNOMED Code(s): 127106804 Code(s): I07.1 - RHEUMATIC TRICUSPID INSUFFICIENCY Status: Chronic Current Visit: No (5) Hx of deep venous thrombosis SNOMED Code(s): 725214421 Code(s): Z86.718 - PERSONAL HISTORY OF OTHER VENOUS THROMBOSIS AND EMBOLISM Status: Chronic Current Visit: No (6) CKD (chronic kidney disease), stage III SNOMED Code(s): 327914488 Code(s): N18.3 - CHRONIC KIDNEY DISEASE, STAGE 3 (MODERATE) Status: Chronic Current Visit: Yes - Problem List Review Problem List Initiated/Reviewed/Updated: Yes - My Orders Last 24 Hours: My Active Orders 03/08/18 17:44 CULTURE BLOOD [BC] Urgent Blood Culture x2 Reflex Set [OM.PC] Urgent 03/08/18 17:46 RT Aerosol Therapy [RC] ASDIRECTED Acetaminophen [Tylenol] 650 mg PO Q4H PRN Albuterol [Proventil Neb Soln] 2.5 mg NEB Q4H PRN 03/08/18 17:48 Patient Status [ADT] Routine Bedrest Bedside Commode [RC] ASDIRECTED Oxygen Therapy [RC] PRN VTE/DVT Education [RC] Per Unit Routine Vital Signs [RC] Q4H Magnesium Hydroxide [Milk of Magnesia] 30 ml PO Q12H PRN Ondansetron [Zofran ODT] 4 mg PO Q6H PRN Polyethylene Glycol 3350 [MiraLAX] 17 gm PO DAILY PRN Sodium Chloride 0.9% [Saline Flush] 10 ml FLUSH ASDIRECTED PRN Saline Lock Insert [OM.PC] Routine Resuscitation Status Routine 03/08/18 17:50 Intake and Output [RC] QSHIFT Notify Provider Vital Signs [RC] ASDIRECTED 03/08/18 17:51 CULTURE URINE [RM] Routine 03/08/18 18:00 cefTRIAXone [Rocephin] 2 gm Sodium Chloride 0.9% [Normal Saline] 50 ml IV Q24H 03/08/18 18:14 Chest wo Cont [CT] Routine 03/08/18 18:15 Notify Provider Consults [RC] ASDIRECTED Consult to Physician [CONS] Routine 03/08/18 18:30 CULTURE BLOOD [BC] Urgent 03/08/18 21:00 Albuterol [Proventil Neb Soln] 2.5 mg NEB QIDRT Gabapentin [Neurontin] 300 mg PO BID Phenytoin [Phenytoin] 50 mg PO BEDTIME Torsemide [Demadex] 40 mg PO BID 03/08/18 Dinner 2 Gram Sodium Diet [DIET] 03/09/18 08:00 Potassium Chloride [Klor-Con M20] 20 meq PO BIDMEALS 03/09/18 09:00 Allopurinol [Zyloprim] 100 mg PO DAILY Azithromycin [Zithromax] 500 mg PO DAILY Docusate Sodium [Colace] 100 mg PO DAILY Metoprolol Tartrate [Lopressor] 50 mg PO DAILY Phenytoin 100 mg PO DAILY 03/09/18 09:29 US Guidance Thoracentesis NC [US] Routine 03/09/18 12:56 CELL COUNT,BODY FLUID [BF] Routine CULTURE BODY FLUID + SMEAR [RM] Urgent 03/09/18 14:00 Spironolactone [Aldactone] 25 mg PO ONETIME ONE 03/10/18 09:00 Metoprolol Succinate [Toprol XL] 50 mg PO DAILY Spironolactone [Aldactone] 25 mg PO DAILY 03/11/18 07:00 Echo Comp wo Cont [US] Routine - Plan Plan:: ASSESSMENT AND PLAN - Acute cystitis - no symptoms but urine is strongly suggestive of infection and this could be the source of the fever. Urine culture with a gram-negative cheo but identification pending. -Follow-up Urine culture -Empiric antibiotic's with ceftriaxone Large right pleural effusion - history of heart failure with preserved ejection fraction and severe tricuspid regurgitation. Transudative effusion likely secondary to congestive heart failure. Symptomatically much better after thoracentesis. -Follow-up culture and thoracentesis testing -Supplement oxygen if needed -Symptomatic management for cough Heart failure with preserved ejection fraction - History of severe tricuspid regurgitation but has been well compensated recently. Examination concerning for multiple valvular abnormalities. She has had progression of her lower extremity edema that has not been improving despite increases in her diuretics. -Continue diuretics -Start spironolactone -Change metoprolol to long-acting succinate formulation -Mechanical management of lower extremity edema/ stasis ulcers with Dr. Nevarez consultation -Continue medical management for congestive heart failure Chronic kidney disease stage III - creatinine near baseline at this time but slightly down from where she normally runs. 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 plan to restart warfarin today. Stage III chronic kidney disease - creatinine down slightly from baseline. Maintenance issues - - DVT prophylaxis - warfarin - GI prophylaxis - not indicated - Nutrition - low sodium Disposition - I would anticipate discharge home with home care versus possibly the senior living Kit Sanderson M.D.
[2018-03-09] MEDS ORDERED: Spironolactone 25 MG Tab PO ONE (14:00)
[2018-03-09] MEDS: cefTRIAXone 2 GM in Sodium Chloride 0.9% 50 ML IV SCH (17:14)
[2018-03-09] MEDS: PHENYTOIN 50 MG PO SCH (20:52)
[2018-03-10] MEDS: Acetaminophen 325 MG Tab PO PRN ×3 (00:01→18:41)
[2018-03-10] MEDS: guaiFENesin 100 MG/5 ML Soln 10 ML UD Cup PO PRN ×3 (00:40→20:59)
[2018-03-10] MEDS: Albuterol 0.083% 2.5 MG/3 ML Neb Soln NEB SCH ×4 (08:01→21:16)
[2018-03-10] MEDS: Potassium Chloride 20 MEQ Tab.ER PO SCH ×2 (08:16→16:52)
[2018-03-10] MEDS: Torsemide 20 MG Tab PO SCH ×2 (08:16→21:17)
[2018-03-10] MEDS: Docusate Sodium 100 MG Cap PO SCH (08:16)
[2018-03-10] MEDS: Gabapentin 300 MG Cap PO SCH ×2 (08:17→21:17)
[2018-03-10] MEDS: Phenytoin 100 MG Cap.ER PO SCH (08:17)
[2018-03-10] MEDS: Metoprolol Succinate 50 MG Tab.ER PO SCH (08:17)
[2018-03-10] MEDS: Azithromycin 250 MG Tab PO SCH (08:18)
[2018-03-10] MEDS: Allopurinol 100 MG Tab PO SCH (08:22)
[2018-03-10] MEDS ORDERED: Spironolactone 25 MG Tab PO SCH (09:00)
--- NOTE | 2018-03-10 11:00 | PN ---
DATE OF SERVICE: 03/10/2018 SUBJECTIVE: The patient is doing very well. Pain is well controlled. She is resting comfortably. OBJECTIVE: VITAL SIGNS: Stable. SKIN: Leg dressings are intact. No abnormal sequelae from the thoracentesis. ASSESSMENT: Status post thoracentesis and chronic lymphedema. PLAN: Continue the wraps. We will follow intermittently here with respect to the patient. Renan Nevarez MD /[id number]
--- NOTE | 2018-03-10 11:50 | PCM.PN ---
- General Info Date of Service: 03/10/18 Subjective Update: Jocelyn was admitted from the clinic on March 08 for management of fever, shortness of breath and urinary tract infection as well as significant bilateral lower extremity edema/lymphedema. CT scan of the chest revealed a large pleural effusion in the this was drained the morning after admission. Urine culture has grown out pansensitive Escherichia coli. She continues to feel short of breath and has a cough. Edema has improved some and the dermatitis associated with the edema has been improving. Overnight she developed left lower quadrant abdominal pain that is worse with coughing. She had 2 episodes of diarrhea last night but none today. She had a fever to 101.7 last night. She became very confused after receiving her first dose of spironolactone yesterday afternoon. Functional Status: Reports: Pain Controlled, Tolerating Diet - Review of Systems General: Reports: Fever Pulmonary: Reports: Cough Gastrointestinal: Reports: Abdominal Pain - Patient Data Vitals - Most Recent: Last Vital Signs Temp 36.4 C 03/10/18 07:27 Pulse 62 03/10/18 11:02 Resp 20 03/10/18 07:27 BP 121/51 L 03/10/18 08:17 Pulse Ox 95 03/10/18 11:02 Weight - Most Recent: 80.059 kg I&O - Last 24 Hours: Intake & Output 03/09/18 03/10/18 03/10/18 22:59 06:59 14:59 Intake Total 50 120 Balance 50 120 Lab Results Last 24 Hours: Laboratory Results - last 24 hr 03/09/18 03/10/18 03/10/18 Range/Units 12:56 04:41 04:41 WBC 9.2 (4.5-11.0) K/uL RBC 3.89 (3.30-5.50) M/uL Hgb 10.9 L (12.0-15.0) g/dL Hct 33.5 L (36.0-48.0) % MCV 86 (80-98) fL MCH 28 (27-31) pg MCHC 33 (32-36) % Plt Count 183 (150-400) K/uL PT 25.2 H (9.5-12.0) sec INR 2.41 H (0.80-1.20) Sodium (140-148) mmol/L Potassium (3.6-5.2) mmol/L Chloride (100-108) mmol/L Carbon Dioxide (21-32) mmol/L Anion Gap (5.0-14.0) mmol/L BUN (7-18) mg/dL Creatinine (0.6-1.0) mg/dL Est Cr Clr Drug Dosing mL/min Estimated GFR (MDRD) (>60) Glucose (74-106) mg/dL Calcium (8.5-10.1) mg/dL Fluid Type Thoracentesis fluid Fluid WBC 63 /ul Fluid RBC 2250 /ul Fluid Diff Comment Fluid Mononuclear Cell 80 % Fl Polymorphonucl Cell 20 % 03/10/18 Range/Units 04:41 WBC (4.5-11.0) K/uL RBC (3.30-5.50) M/uL Hgb (12.0-15.0) g/dL Hct (36.0-48.0) % MCV (80-98) fL MCH (27-31) pg MCHC (32-36) % Plt Count (150-400) K/uL PT (9.5-12.0) sec INR (0.80-1.20) Sodium 132 L (140-148) mmol/L Potassium 4.5 (3.6-5.2) mmol/L Chloride 98 L (100-108) mmol/L Carbon Dioxide 22 (21-32) mmol/L Anion Gap 16.5 H (5.0-14.0) mmol/L BUN 40 H (7-18) mg/dL Creatinine 1.8 H (0.6-1.0) mg/dL Est Cr Clr Drug Dosing 19.06 mL/min Estimated GFR (MDRD) 27 L (>60) Glucose 128 H (74-106) mg/dL Calcium 8.5 (8.5-10.1) mg/dL Fluid Type Fluid WBC /ul Fluid RBC /ul Fluid Diff Comment Fluid Mononuclear Cell % Fl Polymorphonucl Cell % Yony Results Last 24 Hours: Microbiology 03/09/18 13:13 Gram Stain - Final Thoracentesis Fluid Body Fluid Culture - Preliminary NO GROWTH AFTER 1 DAY 03/08/18 17:51 Urine Culture - Final Urine, Clean Catch Escherichia Coli 03/08/18 18:30 Aerobic Blood Culture - Preliminary Blood - Artery NO GROWTH AFTER 1 DAY Anaerobic Blood Culture - Preliminary NO GROWTH AFTER 1 DAY 03/08/18 17:44 Aerobic Blood Culture - Preliminary Blood - Venous NO GROWTH AFTER 1 DAY Anaerobic Blood Culture - Preliminary NO GROWTH AFTER 1 DAY Med Orders - Current: Current Medications Acetaminophen (Tylenol) 650 mg PO Q4H PRN PRN Reason: Pain/Fever Last Admin: 03/10/18 07:49 Dose: 650 mg Albuterol (Proventil Neb Soln) 2.5 mg NEB Q4H PRN PRN Reason: shortness of breath/wheezing Last Admin: 03/09/18 22:21 Dose: 2.5 mg Albuterol (Proventil Neb Soln) 2.5 mg NEB QIDRT [facility] Last Admin: 03/10/18 11:00 Dose: 2.5 mg Allopurinol (Zyloprim) 100 mg PO DAILY [facility] Last Admin: 03/10/18 08:22 Dose: 100 mg Azithromycin (Zithromax) 500 mg PO DAILY [facility] Last Admin: 03/10/18 08:18 Dose: 500 mg Docusate Sodium (Colace) 100 mg PO DAILY [facility] Last Admin: 03/10/18 08:16 Dose: 100 mg Gabapentin (Neurontin) 300 mg PO BID [facility] Last Admin: 03/10/18 08:17 Dose: 300 mg Guaifenesin (Robitussin) 200 mg PO Q4H PRN PRN Reason: Cough Last Admin: 03/10/18 07:49 Dose: 200 mg Ceftriaxone Sodium 2 gm/ (Sodium Chloride) 50 mls @ 100 mls/hr IV Q24H [facility] Last Admin: 03/09/18 17:14 Dose: 100 mls/hr Magnesium Hydroxide (Milk Of Magnesia) 30 ml PO Q12H PRN PRN Reason: Constipation Metoprolol Succinate (Toprol Xl) 50 mg PO DAILY [facility] Last Admin: 03/10/18 08:17 Dose: 50 mg Ondansetron HCl (Zofran Odt) 4 mg PO Q6H PRN PRN Reason: Nausea able to take PO Phenytoin 50mg Chew (Tab (Ptom)) 0 each PO BEDTIME [facility] Last Admin: 03/09/18 20:52 Dose: 1 each Phenytoin Sodium (Phenytoin) 100 mg PO DAILY [facility] Last Admin: 03/10/18 08:17 Dose: 100 mg Polyethylene Glycol (Miralax) 17 gm PO DAILY PRN PRN Reason: Constipation Potassium Chloride (Klor-Con M20) 20 meq PO BIDMEALS [facility] Last Admin: 03/10/18 08:16 Dose: 20 meq Sodium Chloride (Saline Flush) 10 ml FLUSH ASDIRECTED PRN PRN Reason: Keep Vein Open Torsemide (Demadex) 40 mg PO BID [facility] Last Admin: 03/10/18 08:16 Dose: 40 mg Discontinued Medications Azithromycin 500 mg/ Sodium (Chloride) 250 mls @ 250 mls/hr IV ONETIME ONE Stop: 03/08/18 19:59 Last Admin: 03/08/18 19:52 Dose: 250 mls/hr Metoprolol Tartrate (Lopressor) 50 mg PO DAILY [facility] Last Admin: 03/09/18 08:22 Dose: 50 mg Phenytoin Sodium (Dilantin-125 Susp) 50 mg PO ONETIME ONE Stop: 03/08/18 21:01 Last Admin: 03/08/18 21:13 Dose: 50 mg Spironolactone (Aldactone) 25 mg PO DAILY [facility] Spironolactone (Aldactone) 25 mg PO ONETIME ONE Stop: 03/09/18 14:01 Last Admin: 03/09/18 14:00 Dose: 25 mg Warfarin Sodium (Coumadin) 3 mg PO ONETIME ONE Stop: 03/09/18 16:41 Last Admin: 03/09/18 17:15 Dose: 3 mg - Exam Quality Assessment: No: Supplemental Oxygen General: Alert, Oriented, Cooperative, No Acute Distress Lungs: Normal Respiratory Effort, Decreased Breath Sounds (both bases), Crackles (both bases), Other (nearly persistent coughing ) Cardiovascular: Regular Rate, Regular Rhythm, Murmurs GI/Abdominal Exam: Normal Bowel Sounds, Soft, Non-Tender, No Distention Extremities: Pedal Edema Skin: Warm, Dry, Rash (much improved with some residual erythema left medial thigh ) Psy/Mental Status: Alert, Normal Affect - Problem List & Annotations (1) Acute cystitis with hematuria SNOMED Code(s): 43053295 Code(s): N30.01 - ACUTE CYSTITIS WITH HEMATURIA Status: Acute Current Visit: Yes (2) Bronchitis SNOMED Code(s): 14607745 Code(s): J40 - BRONCHITIS, NOT SPECIFIED ACUTE OR CHRONIC Status: Acute Current Visit: Yes (3) Chronic diastolic (congestive) heart failure SNOMED Code(s): 275523960, 665303828 Code(s): I50.32 - CHRONIC DIASTOLIC (CONGESTIVE) HEART FAILURE Status: Chronic Current Visit: No (4) Severe tricuspid regurgitation SNOMED Code(s): 092965976 Code(s): I07.1 - RHEUMATIC TRICUSPID INSUFFICIENCY Status: Chronic Current Visit: No (5) Hx of deep venous thrombosis SNOMED Code(s): 073545989 Code(s): Z86.718 - PERSONAL HISTORY OF OTHER VENOUS THROMBOSIS AND EMBOLISM Status: Chronic Current Visit: No (6) CKD (chronic kidney disease), stage III SNOMED Code(s): 181304960 Code(s): N18.3 - CHRONIC KIDNEY DISEASE, STAGE 3 (MODERATE) Status: Chronic Current Visit: Yes - Problem List Review Problem List Initiated/Reviewed/Updated: Yes - My Orders Last 24 Hours: My Active Orders 03/09/18 13:13 CULTURE BODY FLUID + SMEAR [RM] Urgent 03/09/18 16:41 Up With Assistance [RC] ASDIRECTED Up to Chair [RC] QID 03/09/18 21:00 Patient's Own Medication [Ptom] 0 each PO BEDTIME 03/10/18 00:15 guaiFENesin [Robitussin] 200 mg PO Q4H PRN 03/10/18 09:00 Metoprolol Succinate [Toprol XL] 50 mg PO DAILY 03/10/18 11:47 Benzonatate [Tessalon Perles] 100 mg PO TID PRN 03/10/18 11:48 Abdomen Pelvis wo Cont [CT] Routine 03/10/18 13:00 Warfarin [Coumadin] 2 mg PO DAILY@1300 03/11/18 05:00 BASIC METABOLIC PANEL,BMP [CHEM] Timed CBC W/O DIFF,HEMOGRAM [HEME] Timed (1) INR,PT,PROTHROMBIN TIME [COAG] Timed 03/11/18 07:00 PT Evaluation and Treatment [CONS] Routine Echo Comp wo Cont [US] Routine - Plan Plan:: ASSESSMENT AND PLAN - Left lower quadrant abdominal pain - started last night and had 2 episodes of diarrhea associated as well as a fever greater than 101 last night. Exam is relatively benign at this time. Could be diverticulitis versus inflammatory versus other. -CT scan of the abdomen and pelvis -Adjust antibiotics based on results Acute cystitis - no symptoms but urine is strongly suggestive of infection and this could be the source of the fever. Urine culture grew out pansensitive Escherichia coli. -Follow-up Urine culture -Continue current antibiotics, they will be adjusted based on CAT scan results Large right pleural effusion - history of heart failure with preserved ejection fraction and severe tricuspid regurgitation. Transudative effusion likely secondary to congestive heart failure. Symptomatically much better after thoracentesis initially but now has an increase in shortness of breath and increased cough. She does have persistent effusion on the right noted on the follow-up chest x-ray. -Follow-up culture and thoracentesis testing -Supplement oxygen if needed -Symptomatic management for cough Heart failure with preserved ejection fraction - History of severe tricuspid regurgitation but has been well compensated recently. Examination concerning for multiple valvular abnormalities. Edema has improved during the course of the hospital stay. She is using mechanical compression for the lower half of her legs. We did trial spironolactone yesterday but she became very confused after was administered. -Continue diuretics -Discontinue spironolactone -Change metoprolol to long-acting succinate formulation -Mechanical management of lower extremity edema/ stasis ulcers with Dr. Nevarez consultation -Continue medical management for congestive heart failure Chronic kidney disease stage III - creatinine near baseline at this time but slightly down from where she normally runs. 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 Continuing warfarin. Maintenance issues - - DVT prophylaxis - warfarin - GI prophylaxis - not indicated - Nutrition - low sodium Disposition - I would anticipate discharge home with home care versus possibly the [place] [facility] Kit Sanderson M.D.
[2018-03-10] MEDS: cefTRIAXone 2 GM in Sodium Chloride 0.9% 50 ML IV SCH (17:02)
[2018-03-10] MEDS: Benzonatate 100 MG Cap PO PRN (18:43)
[2018-03-10] MEDS: Brimonidine 0.2% Ophth Soln 5 ML Bottle EYEBOTH SCH (21:17)
[2018-03-10] MEDS: PHENYTOIN 50 MG PO SCH (21:17)
[2018-03-10] MEDS: Timolol Maleate 0.5% Ophth Soln 5 ML Bottle EYEBOTH SCH (22:15)
[2018-03-10] MEDS: Latanoprost 0.005% Ophth Soln 2.5 ML Bottle EYEBOTH SCH (22:16)
[2018-03-11] MEDS: Albuterol 0.083% 2.5 MG/3 ML Neb Soln NEB SCH ×4 (07:17→21:37)
[2018-03-11] MEDS: guaiFENesin 100 MG/5 ML Soln 10 ML UD Cup PO PRN ×4 (08:28→21:37)
[2018-03-11] MEDS: Benzonatate 100 MG Cap PO PRN ×3 (08:28→21:37)
[2018-03-11] MEDS: Potassium Chloride 20 MEQ Tab.ER PO SCH ×2 (09:36→17:14)
[2018-03-11] MEDS: Docusate Sodium 100 MG Cap PO SCH (09:36)
[2018-03-11] MEDS: Torsemide 20 MG Tab PO SCH ×2 (09:36→21:32)
[2018-03-11] MEDS: Gabapentin 300 MG Cap PO SCH ×2 (09:37→21:32)
[2018-03-11] MEDS: Phenytoin 100 MG Cap.ER PO SCH (09:38)
[2018-03-11] MEDS: Allopurinol 100 MG Tab PO SCH (09:39)
[2018-03-11] MEDS: Metoprolol Succinate 50 MG Tab.ER PO SCH (09:39)
[2018-03-11] MEDS: Azithromycin 250 MG Tab PO SCH (09:40)
[2018-03-11] MEDS: Acetaminophen 325 MG Tab PO PRN (09:47)
[2018-03-11] MEDS: Brimonidine 0.2% Ophth Soln 5 ML Bottle EYEBOTH SCH ×2 (09:48→21:33)
[2018-03-11] MEDS: Timolol Maleate 0.5% Ophth Soln 5 ML Bottle EYEBOTH SCH ×2 (09:50→21:32)
--- NOTE | 2018-03-11 09:51 | OR ---
DATE OF PROCEDURE: 03/09/2018 PROCEDURE: Thoracentesis. FINDINGS: 800 mL of straw-colored fluid. No evidence of blood or abnormality. COMPLICATIONS: None. PERSONAL INJURY LAW SPECIALIST: None. PREOPERATIVE DIAGNOSIS: Pleural effusion. POSTOPERATIVE DIAGNOSIS: Pleural effusion. INDICATIONS: This is a pleasant 83-year-old female, whom I have been seeing for consultation in the hospital due to lymphedema. She also has a pleural effusion and requested Hospitalist Service. They requested fluid removal and sampling. Risks were explained to the patient including, but not limited to infection, bleeding, pneumothorax, chest tube. We discussed the benefits, alternatives, and limitations of these choices also. The patient understands these risks and wishes to proceed. PROCEDURE IN DETAIL: The patient was placed over a Meza stand. The right chest was identified, this had been marked with ultrasound. This was prepped and draped. A single zeina was created in the skin, after anesthetizing with lidocaine. The sheath was introduced as the needle was withdrawn. 100 mL of fluid was aspirated and set aside for laboratory evaluation. This was then hooked to a vacuum bottle system, and approximately 800 mL of additional straw-colored fluid was noted. The sheath was then removed. Direct pressure was held for 5 minutes. Dressings were applied. The patient tolerated the procedure well. Renan Nevarez MD /[id number]
--- NOTE | 2018-03-11 12:36 | CR ---
Portable chest Comparison: Previous day. Findings: The patient is status post right thoracentesis. There is interval decrease in size or a right pleural effusion. There is a small residual remaining. There is no pneumothorax. Impression: 1. Status post right thoracentesis without complication.
--- NOTE | 2018-03-11 14:13 | PCM.PN ---
- General Info Date of Service: 03/11/18 Subjective Update: Ms. Rowley is been admitted with severe peripheral edema, progressive weakness, and respiratory tract infection. She remains very weak and sleepy when I saw her today, we tried to have a discussion concerning possible hospice care but she was unable to remain awake for this discussion. Her daughter was present and feels that hospice care would be appropriate, but would like her mother to be more involved in the decision. Echocardiogram was obtained today showing low normal left ventricular function with biatrial and right ventricular enlargement. There is tricuspid regurgitation, aortic insufficiency, aortic stenosis, and mitral regurgitation. Other than the tricuspid regurgitation all of these are felt to be moderate severity. Functional Status: Reports: Pain Controlled, Tolerating Diet, Urinating - Review of Systems General: Reports: Weakness. Denies: Fever, Chills Pulmonary: Reports: No Symptoms Cardiovascular: Reports: Edema. Denies: Chest Pain, Dyspnea on Exertion Gastrointestinal: Reports: No Symptoms - Patient Data Vitals - Most Recent: Last Vital Signs Temp 98.6 F 03/11/18 10:51 Pulse 60 03/11/18 10:56 Resp 16 03/11/18 10:51 BP 96/40 L 03/11/18 10:51 Pulse Ox 98 03/11/18 10:51 Weight - Most Recent: 176 lb 7.998 oz I&O - Last 24 Hours: Intake & Output 03/10/18 03/11/18 03/11/18 22:59 06:59 14:59 Intake Total 1860 120 Balance 1860 120 Lab Results Last 24 Hours: Laboratory Results - last 24 hr 03/11/18 03/11/18 03/11/18 Range/Units 06:00 06:00 06:00 WBC 6.0 (4.5-11.0) K/uL RBC 3.81 (3.30-5.50) M/uL Hgb 10.7 L (12.0-15.0) g/dL Hct 33.2 L (36.0-48.0) % MCV 87 (80-98) fL MCH 28 (27-31) pg MCHC 32 (32-36) % Plt Count 188 (150-400) K/uL PT 27.3 H (9.5-12.0) sec INR 2.62 H (0.80-1.20) Sodium 135 L (140-148) mmol/L Potassium 4.1 (3.6-5.2) mmol/L Chloride 100 (100-108) mmol/L Carbon Dioxide 26 (21-32) mmol/L Anion Gap 13.1 (5.0-14.0) mmol/L BUN 37 H (7-18) mg/dL Creatinine 1.4 H (0.6-1.0) mg/dL Est Cr Clr Drug Dosing 24.50 mL/min Estimated GFR (MDRD) 36 L (>60) Glucose 88 (74-106) mg/dL Calcium 8.4 L (8.5-10.1) mg/dL Yony Results Last 24 Hours: Microbiology 03/09/18 13:13 Gram Stain - Final Thoracentesis Fluid Body Fluid Culture - Preliminary NO GROWTH AFTER 2 DAYS Med Orders - Current: Current Medications Acetaminophen (Tylenol) 650 mg PO Q4H PRN PRN Reason: Pain/Fever Last Admin: 03/11/18 09:47 Dose: 650 mg Albuterol (Proventil Neb Soln) 2.5 mg NEB Q4H PRN PRN Reason: shortness of breath/wheezing Last Admin: 03/09/18 22:21 Dose: 2.5 mg Albuterol (Proventil Neb Soln) 2.5 mg NEB QIDRT [facility] Last Admin: 03/11/18 10:55 Dose: 2.5 mg Allopurinol (Zyloprim) 100 mg PO DAILY [facility] Last Admin: 03/11/18 09:39 Dose: 100 mg Azithromycin (Zithromax) 500 mg PO DAILY [facility] Last Admin: 03/11/18 09:40 Dose: 500 mg Benzonatate (Tessalon Perles) 100 mg PO TID PRN PRN Reason: Cough Last Admin: 03/11/18 13:59 Dose: 100 mg Brimonidine Tartrate (Alphagan 0.2% Ophth Soln) 0 ml EYEBOTH BID [facility] Last Admin: 03/11/18 09:48 Dose: 1 drop Docusate Sodium (Colace) 100 mg PO DAILY [facility] Last Admin: 03/11/18 09:36 Dose: 100 mg Gabapentin (Neurontin) 300 mg PO BID [facility] Last Admin: 03/11/18 09:37 Dose: 300 mg Guaifenesin (Robitussin) 200 mg PO Q4H PRN PRN Reason: Cough Last Admin: 03/11/18 13:58 Dose: 200 mg Ceftriaxone Sodium 2 gm/ (Sodium Chloride) 50 mls @ 100 mls/hr IV Q24H [facility] Last Admin: 03/10/18 17:02 Dose: 100 mls/hr Latanoprost (Xalatan 0.005% Ophth Soln) 0 ml EYEBOTH BEDTIME [facility] Last Admin: 03/10/18 22:16 Dose: Not Given Magnesium Hydroxide (Milk Of Magnesia) 30 ml PO Q12H PRN PRN Reason: Constipation Metoprolol Succinate (Toprol Xl) 50 mg PO DAILY [facility] Last Admin: 03/11/18 09:39 Dose: 50 mg Ondansetron HCl (Zofran Odt) 4 mg PO Q6H PRN PRN Reason: Nausea able to take PO Phenytoin 50mg Chew (Tab (Ptom)) 0 each PO BEDTIME [facility] Last Admin: 03/10/18 21:17 Dose: 1 each Phenytoin Sodium (Phenytoin) 100 mg PO DAILY [facility] Last Admin: 03/11/18 09:38 Dose: 100 mg Polyethylene Glycol (Miralax) 17 gm PO DAILY PRN PRN Reason: Constipation Potassium Chloride (Klor-Con M20) 20 meq PO BIDMEALS [facility] Last Admin: 03/11/18 09:36 Dose: 20 meq Sodium Chloride (Saline Flush) 10 ml FLUSH ASDIRECTED PRN PRN Reason: Keep Vein Open Timolol Maleate (Timoptic 0.5% Ophth Soln) 0 ml EYEBOTH BID [facility] Last Admin: 03/11/18 09:50 Dose: 1 drop Torsemide (Demadex) 40 mg PO BID [facility] Last Admin: 03/11/18 09:36 Dose: 40 mg Warfarin Sodium (Coumadin) 2 mg PO DAILY@1300 [facility] Last Admin: 03/11/18 13:58 Dose: 2 mg Discontinued Medications Azithromycin 500 mg/ Sodium (Chloride) 250 mls @ 250 mls/hr IV ONETIME ONE Stop: 03/08/18 19:59 Last Admin: 03/08/18 19:52 Dose: 250 mls/hr Metoprolol Tartrate (Lopressor) 50 mg PO DAILY [facility] Last Admin: 03/09/18 08:22 Dose: 50 mg Non-Formulary Medication (Brimonidine Tartrate/Timolol [Combigan 0.2%-0.5% Eye Drops]) 1 drop EYEBOTH BID [facility] Phenytoin Sodium (Dilantin-125 Susp) 50 mg PO ONETIME ONE Stop: 03/08/18 21:01 Last Admin: 03/08/18 21:13 Dose: 50 mg Spironolactone (Aldactone) 25 mg PO DAILY [facility] Spironolactone (Aldactone) 25 mg PO ONETIME ONE Stop: 03/09/18 14:01 Last Admin: 03/09/18 14:00 Dose: 25 mg Warfarin Sodium (Coumadin) 3 mg PO ONETIME ONE Stop: 03/09/18 16:41 Last Admin: 03/09/18 17:15 Dose: 3 mg - Exam Quality Assessment: DVT Prophylaxis General: Alert, Oriented, Cooperative, Mild Distress Lungs: Clear to Auscultation, Normal Respiratory Effort Cardiovascular: Regular Rate, Regular Rhythm, No Murmurs GI/Abdominal Exam: Soft, Non-Tender, No Organomegaly, No Distention Extremities: Non-Tender, Pedal Edema - Problem List Review Problem List Initiated/Reviewed/Updated: Yes - My Orders Last 24 Hours: My Active Orders 03/12/18 05:00 BASIC METABOLIC PANEL,BMP [CHEM] Timed CBC WITH AUTO DIFF [HEME] Timed MAGNESIUM [CHEM] Timed - Plan Plan:: ASSESSMENT AND PLAN - Left lower quadrant abdominal pain - severe associated with cough, CT scan of the abdomen and pelvis obtained yesterday was unremarkable. -Adjust antibiotics based on results Acute cystitis - no symptoms but urine is strongly suggestive of infection and this could be the source of the fever. Urine culture grew out pansensitive Escherichia coli. -Continue current antibiotics Large right pleural effusion - history of heart failure with preserved ejection fraction and severe tricuspid regurgitation. Echocardiogram also showed biatrial enlargement, right ventricular enlargement, decreased right ventricular function, moderate AI, MS, and MR. Transudative effusion likely secondary to congestive heart failure. Symptomatically much better after thoracentesis initially. -Follow-up culture and thoracentesis testing -Supplement oxygen if needed -Symptomatic management for cough Heart failure with preserved ejection fraction - History of severe tricuspid regurgitation but has been well compensated recently. Echocardiogram results as above Edema has improved during the course of the hospital stay. She is using mechanical compression for the lower half of her legs. -Continue diuretics -Change metoprolol to long-acting succinate formulation -Mechanical management of lower extremity edema/ stasis ulcers with Dr. Nevarez consultation -Continue medical management for congestive heart failure Chronic kidney disease stage III - creatinine near baseline at this time but slightly down from where she normally runs. 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 Continuing warfarin. Palliative care-patient and family are considering hospice admission after discharge Maintenance issues - - DVT prophylaxis - warfarin - GI prophylaxis - not indicated - Nutrition - low sodium Disposition - I would anticipate discharge home with home care versus possibly the long term
[2018-03-11] MEDS: LORazepam 0.5 MG Tab PO PRN (17:10)
[2018-03-11] MEDS: cefTRIAXone 2 GM in Sodium Chloride 0.9% 50 ML IV SCH (17:14)
[2018-03-11] MEDS: PHENYTOIN 50 MG PO SCH (21:32)
[2018-03-11] MEDS: Latanoprost 0.005% Ophth Soln 2.5 ML Bottle EYEBOTH SCH (21:33)
[2018-03-12] MEDS: Albuterol 0.083% 2.5 MG/3 ML Neb Soln NEB SCH ×4 (07:41→21:14)
[2018-03-12] MEDS: Brimonidine 0.2% Ophth Soln 5 ML Bottle EYEBOTH SCH ×2 (09:01→21:06)
[2018-03-12] MEDS: Docusate Sodium 100 MG Cap PO SCH (09:02)
[2018-03-12] MEDS: Potassium Chloride 20 MEQ Tab.ER PO SCH ×2 (09:03→17:11)
[2018-03-12] MEDS: Torsemide 20 MG Tab PO SCH ×2 (09:04→21:10)
[2018-03-12] MEDS: Timolol Maleate 0.5% Ophth Soln 5 ML Bottle EYEBOTH SCH ×2 (09:04→21:06)
[2018-03-12] MEDS: Phenytoin 100 MG Cap.ER PO SCH (09:06)
[2018-03-12] MEDS: Gabapentin 300 MG Cap PO SCH ×2 (09:06→21:09)
[2018-03-12] MEDS: Azithromycin 250 MG Tab PO SCH (09:07)
[2018-03-12] MEDS: Allopurinol 100 MG Tab PO SCH (09:07)
[2018-03-12] MEDS: Metoprolol Succinate 50 MG Tab.ER PO SCH (09:08)
--- NOTE | 2018-03-12 16:56 | PCM.PN ---
- General Info Date of Service: 03/12/18 Subjective Update: Ms. Rowley has been fairly comfortable over the last 24 hours, sleeping much of the time. Currently denies significant shortness of breath or other discomfort. Functional Status: Reports: Pain Controlled, Tolerating Diet, Urinating - Review of Systems General: Reports: Weakness. Denies: Fever, Chills Pulmonary: Reports: No Symptoms Cardiovascular: Reports: Dyspnea on Exertion, Edema. Denies: Chest Pain, Palpitations, Orthopnea, PND, Lightheadedness Gastrointestinal: Reports: No Symptoms - Patient Data Vitals - Most Recent: Last Vital Signs Temp 98.2 F 03/12/18 15:14 Pulse 61 03/12/18 15:14 Resp 22 H 03/12/18 15:14 BP 109/59 L 03/12/18 15:14 Pulse Ox 92 L 03/12/18 15:14 Weight - Most Recent: 176 lb 7.998 oz I&O - Last 24 Hours: Intake & Output 03/12/18 03/12/18 03/12/18 06:59 14:59 22:59 Intake Total 600 Balance 600 Lab Results Last 24 Hours: Laboratory Results - last 24 hr 03/12/18 03/12/18 Range/Units 04:45 04:45 WBC 4.8 (4.5-11.0) K/uL RBC 3.68 (3.30-5.50) M/uL Hgb 10.4 L (12.0-15.0) g/dL Hct 32.0 L (36.0-48.0) % MCV 87 (80-98) fL MCH 28 (27-31) pg MCHC 33 (32-36) % Plt Count 172 (150-400) K/uL Neut % (Auto) 69 H (36-66) % Lymph % (Auto) 14 L (24-44) % [place]verse % (Auto) 16 H (2-6) % Eos % (Auto) 1 L (2-4) % Baso % (Auto) 0 (0-1) % Sodium 134 L (140-148) mmol/L Potassium 4.0 (3.6-5.2) mmol/L Chloride 100 (100-108) mmol/L Carbon Dioxide 26 (21-32) mmol/L Anion Gap 12.0 (5.0-14.0) mmol/L BUN 36 H (7-18) mg/dL Creatinine 1.3 H (0.6-1.0) mg/dL Est Cr Clr Drug Dosing 26.16 mL/min Estimated GFR (MDRD) 39 L (>60) Glucose 108 H (74-106) mg/dL Calcium 8.4 L (8.5-10.1) mg/dL Magnesium 2.1 (1.8-2.4) mg/dL Yony Results Last 24 Hours: Microbiology 03/09/18 13:13 Gram Stain - Final Thoracentesis Fluid Body Fluid Culture - Final NO GROWTH AFTER 3 DAYS 03/08/18 18:30 Aerobic Blood Culture - Preliminary Blood - Artery NO GROWTH AFTER 3 DAYS Anaerobic Blood Culture - Preliminary NO GROWTH AFTER 3 DAYS 03/08/18 17:44 Aerobic Blood Culture - Preliminary Blood - Venous NO GROWTH AFTER 3 DAYS Anaerobic Blood Culture - Preliminary NO GROWTH AFTER 3 DAYS Med Orders - Current: Current Medications Acetaminophen (Tylenol) 650 mg PO Q4H PRN PRN Reason: Pain/Fever Last Admin: 03/11/18 09:47 Dose: 650 mg Albuterol (Proventil Neb Soln) 2.5 mg NEB Q4H PRN PRN Reason: shortness of breath/wheezing Last Admin: 03/09/18 22:21 Dose: 2.5 mg Albuterol (Proventil Neb Soln) 2.5 mg NEB QIDRT [facility] Last Admin: 03/12/18 15:01 Dose: 2.5 mg Allopurinol (Zyloprim) 100 mg PO DAILY [facility] Last Admin: 03/12/18 09:07 Dose: 100 mg Benzonatate (Tessalon Perles) 100 mg PO TID PRN PRN Reason: Cough Last Admin: 03/11/18 21:37 Dose: 100 mg Brimonidine Tartrate (Alphagan 0.2% Ophth Soln) 0 ml EYEBOTH BID [facility] Last Admin: 03/12/18 09:01 Dose: 1 drop Docusate Sodium (Colace) 100 mg PO DAILY [facility] Last Admin: 03/12/18 09:02 Dose: 100 mg Gabapentin (Neurontin) 300 mg PO BID [facility] Last Admin: 03/12/18 09:06 Dose: 300 mg Guaifenesin (Robitussin) 200 mg PO Q4H PRN PRN Reason: Cough Last Admin: 03/11/18 21:37 Dose: 200 mg Latanoprost (Xalatan 0.005% Ophth Soln) 0 ml EYEBOTH BEDTIME [facility] Last Admin: 03/11/18 21:33 Dose: 1 drop Lorazepam (Ativan) 0.5 mg PO Q4H PRN PRN Reason: Anxiety Last Admin: 03/11/18 17:10 Dose: 0.5 mg Magnesium Hydroxide (Milk Of Magnesia) 30 ml PO Q12H PRN PRN Reason: Constipation Metoprolol Succinate (Toprol Xl) 50 mg PO DAILY [facility] Last Admin: 03/12/18 09:08 Dose: 50 mg Morphine Sulfate (Morphine 10 Mg/0.5 Ml Oral Syringe) 5 mg PO Q2H PRN PRN Reason: Dyspnea Ondansetron HCl (Zofran Odt) 4 mg PO Q6H PRN PRN Reason: Nausea able to take PO Phenytoin 50mg Chew (Tab (Ptom)) 0 each PO BEDTIME [facility] Last Admin: 03/11/18 21:32 Dose: 1 each Phenytoin Sodium (Phenytoin) 100 mg PO DAILY [facility] Last Admin: 03/12/18 09:06 Dose: 100 mg Polyethylene Glycol (Miralax) 17 gm PO DAILY PRN PRN Reason: Constipation Potassium Chloride (Klor-Con M20) 20 meq PO BIDMEALS [facility] Last Admin: 03/12/18 09:03 Dose: 20 meq Sodium Chloride (Saline Flush) 10 ml FLUSH ASDIRECTED PRN PRN Reason: Keep Vein Open Timolol Maleate (Timoptic 0.5% Ophth Soln) 0 ml EYEBOTH BID [facility] Last Admin: 03/12/18 09:04 Dose: 1 drop Torsemide (Demadex) 40 mg PO BID [facility] Last Admin: 03/12/18 09:04 Dose: 40 mg Warfarin Sodium (Coumadin) 2 mg PO DAILY@1300 [facility] Last Admin: 03/12/18 13:20 Dose: 2 mg Discontinued Medications Azithromycin (Zithromax) 500 mg PO DAILY [facility] Last Admin: 03/12/18 09:07 Dose: 500 mg Azithromycin 500 mg/ Sodium (Chloride) 250 mls @ 250 mls/hr IV ONETIME ONE Stop: 03/08/18 19:59 Last Admin: 03/08/18 19:52 Dose: 250 mls/hr Ceftriaxone Sodium 2 gm/ (Sodium Chloride) 50 mls @ 100 mls/hr IV Q24H [facility] Last Admin: 03/11/18 17:14 Dose: 100 mls/hr Metoprolol Tartrate (Lopressor) 50 mg PO DAILY [facility] Last Admin: 03/09/18 08:22 Dose: 50 mg Non-Formulary Medication (Brimonidine Tartrate/Timolol [Combigan 0.2%-0.5% Eye Drops]) 1 drop EYEBOTH BID [facility] Phenytoin Sodium (Dilantin-125 Susp) 50 mg PO ONETIME ONE Stop: 03/08/18 21:01 Last Admin: 03/08/18 21:13 Dose: 50 mg Spironolactone (Aldactone) 25 mg PO DAILY [facility] Spironolactone (Aldactone) 25 mg PO ONETIME ONE Stop: 03/09/18 14:01 Last Admin: 03/09/18 14:00 Dose: 25 mg Warfarin Sodium (Coumadin) 3 mg PO ONETIME ONE Stop: 03/09/18 16:41 Last Admin: 03/09/18 17:15 Dose: 3 mg - Exam Quality Assessment: Supplemental Oxygen, DVT Prophylaxis General: Lethargic Lungs: Normal Respiratory Effort, Decreased Breath Sounds. No: Rales, Rhonchi, Wheezing Cardiovascular: Regular Rate, Irregular Rhythm, Murmurs GI/Abdominal Exam: Soft, Non-Tender, No Organomegaly, No Distention Extremities: Non-Tender, Pedal Edema - Problem List Review Problem List Initiated/Reviewed/Updated: Yes - My Orders Last 24 Hours: My Active Orders 03/12/18 16:25 Morphine [Morphine 10 MG/0.5 ML Oral Syringe] 5 mg PO Q2H PRN 03/13/18 05:00 INR,PT,PROTHROMBIN TIME [COAG] Timed - Plan Plan:: ASSESSMENT AND PLAN - Left lower quadrant abdominal pain - improved over the last 2 days Acute cystitis - resolved -Discontinue antibiotic therapy Large right pleural effusion - history of heart failure with preserved ejection fraction and severe tricuspid regurgitation. Echocardiogram also showed biatrial enlargement, right ventricular enlargement, decreased right ventricular function, moderate AI, MS, and MR. Transudative effusion likely secondary to congestive heart failure. Symptomatically much better after thoracentesis initially. After discussion patient and family have decided to proceed with comfort cares only Heart failure with preserved ejection fraction - History of severe tricuspid regurgitation but has been well compensated recently. Echocardiogram results as above Edema has improved during the course of the hospital stay. She is using mechanical compression for the lower half of her legs. -Continue diuretics -Change metoprolol to long-acting succinate formulation -Mechanical management of lower extremity edema/ stasis ulcers with Dr. Nevarez consultation -Continue medical management for congestive heart failure -Comfort cares only Chronic kidney disease stage III - creatinine near baseline at this time but slightly down from where she normally runs. 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 Continuing warfarin. Palliative care-patient and family have requested comfort cares only and hospice admission after discharge Maintenance issues - - DVT prophylaxis - warfarin - GI prophylaxis - not indicated - Nutrition - low sodium Disposition - I would anticipate discharge to assisted living facility with hospice admission
[2018-03-12] MEDS: Latanoprost 0.005% Ophth Soln 2.5 ML Bottle EYEBOTH SCH (21:06)
[2018-03-12] MEDS: PHENYTOIN 50 MG PO SCH (21:09)
[2018-03-13] MEDS: Albuterol 0.083% 2.5 MG/3 ML Neb Soln NEB SCH ×4 (07:05→21:21)
[2018-03-13] MEDS: Benzonatate 100 MG Cap PO PRN ×2 (08:29→18:19)
[2018-03-13] MEDS: guaiFENesin 100 MG/5 ML Soln 10 ML UD Cup PO PRN (08:29)
[2018-03-13] MEDS: Torsemide 20 MG Tab PO SCH ×2 (08:35→21:17)
[2018-03-13] MEDS: Potassium Chloride 20 MEQ Tab.ER PO SCH ×2 (08:35→16:33)
[2018-03-13] MEDS: Docusate Sodium 100 MG Cap PO SCH (08:36)
[2018-03-13] MEDS: Gabapentin 300 MG Cap PO SCH ×2 (08:36→21:16)
[2018-03-13] MEDS: Metoprolol Succinate 50 MG Tab.ER PO SCH (08:36)
[2018-03-13] MEDS: Allopurinol 100 MG Tab PO SCH (08:36)
[2018-03-13] MEDS: Phenytoin 100 MG Cap.ER PO SCH (08:37)
[2018-03-13] MEDS: Timolol Maleate 0.5% Ophth Soln 5 ML Bottle EYEBOTH SCH ×2 (08:37→21:16)
[2018-03-13] MEDS: Brimonidine 0.2% Ophth Soln 5 ML Bottle EYEBOTH SCH ×2 (08:44→21:16)
[2018-03-13] MEDS: Codeine/guaiFENesin 100mg-10 MG/5 ML Syrup 10 ML Cup PO PRN ×2 (13:52→18:19)
--- NOTE | 2018-03-13 16:15 | PCM.PN ---
- General Info Date of Service: 03/13/18 Subjective Update: Ms. Rowley is been stable since yesterday, denies significant pain or shortness of breath when at rest. Edema and venous stasis are well managed at the present time. Functional Status: Reports: Tolerating Diet, Urinating - Review of Systems General: Reports: Weakness. Denies: Fever, Chills Pulmonary: Denies: Pleuritic Chest Pain, Cough, Sputum, Hemoptysis, Wheezing Cardiovascular: Reports: Dyspnea on Exertion, Edema. Denies: Chest Pain, Palpitations, Orthopnea, PND Gastrointestinal: Reports: No Symptoms - Patient Data Vitals - Most Recent: Last Vital Signs Temp 97.3 F 03/13/18 14:58 Pulse 61 03/13/18 14:58 Resp 18 03/13/18 14:58 BP 118/49 L 03/13/18 14:58 Pulse Ox 94 L 03/13/18 14:58 Weight - Most Recent: 176 lb 7.998 oz I&O - Last 24 Hours: Intake & Output 03/13/18 03/13/18 03/13/18 06:59 14:59 22:59 Intake Total 360 120 Balance 360 120 Lab Results Last 24 Hours: Laboratory Results - last 24 hr 03/13/18 Range/Units 04:36 PT 31.8 H (9.5-12.0) sec INR 3.08 H (0.80-1.20) Yony Results Last 24 Hours: Microbiology 03/08/18 18:30 Aerobic Blood Culture - Preliminary Blood - Artery NO GROWTH AFTER 4 DAYS Anaerobic Blood Culture - Preliminary NO GROWTH AFTER 4 DAYS 03/08/18 17:44 Aerobic Blood Culture - Preliminary Blood - Venous NO GROWTH AFTER 4 DAYS Anaerobic Blood Culture - Preliminary NO GROWTH AFTER 4 DAYS Med Orders - Current: Current Medications Acetaminophen (Tylenol) 650 mg PO Q4H PRN PRN Reason: Pain/Fever Last Admin: 03/11/18 09:47 Dose: 650 mg Albuterol (Proventil Neb Soln) 2.5 mg NEB Q4H PRN PRN Reason: shortness of breath/wheezing Last Admin: 03/09/18 22:21 Dose: 2.5 mg Albuterol (Proventil Neb Soln) 2.5 mg NEB QIDRT [facility] Last Admin: 03/13/18 14:38 Dose: 2.5 mg Allopurinol (Zyloprim) 100 mg PO DAILY [facility] Last Admin: 03/13/18 08:36 Dose: 100 mg Benzonatate (Tessalon Perles) 100 mg PO TID PRN PRN Reason: Cough Last Admin: 03/13/18 08:29 Dose: 100 mg Brimonidine Tartrate (Alphagan 0.2% Ophth Soln) 0 ml EYEBOTH BID [facility] Last Admin: 03/13/18 08:44 Dose: 1 drop Docusate Sodium (Colace) 100 mg PO DAILY [facility] Last Admin: 03/13/18 08:36 Dose: 100 mg Gabapentin (Neurontin) 300 mg PO BID [facility] Last Admin: 03/13/18 08:36 Dose: 300 mg Guaifenesin (Robitussin) 200 mg PO Q4H PRN PRN Reason: Cough Last Admin: 03/13/18 08:29 Dose: 200 mg Guaifenesin/Codeine Phosphate (Robitussin Ac) 10 ml PO Q4H PRN PRN Reason: Cough Last Admin: 03/13/18 13:52 Dose: 10 ml Latanoprost (Xalatan 0.005% Ophth Soln) 0 ml EYEBOTH BEDTIME [facility] Last Admin: 03/12/18 21:06 Dose: 1 drop Lorazepam (Ativan) 0.5 mg PO Q4H PRN PRN Reason: Anxiety Last Admin: 03/11/18 17:10 Dose: 0.5 mg Magnesium Hydroxide (Milk Of Magnesia) 30 ml PO Q12H PRN PRN Reason: Constipation Metoprolol Succinate (Toprol Xl) 50 mg PO DAILY [facility] Last Admin: 03/13/18 08:36 Dose: 50 mg Morphine Sulfate (Morphine 10 Mg/0.5 Ml Oral Syringe) 5 mg PO Q2H PRN PRN Reason: Dyspnea Ondansetron HCl (Zofran Odt) 4 mg PO Q6H PRN PRN Reason: Nausea able to take PO Phenytoin 50mg Chew (Tab (Ptom)) 0 each PO BEDTIME [facility] Last Admin: 03/12/18 21:09 Dose: 1 each Phenytoin Sodium (Phenytoin) 100 mg PO DAILY [facility] Last Admin: 03/13/18 08:37 Dose: 100 mg Polyethylene Glycol (Miralax) 17 gm PO DAILY PRN PRN Reason: Constipation Potassium Chloride (Klor-Con M20) 20 meq PO BIDMEALS [facility] Last Admin: 03/13/18 08:35 Dose: 20 meq Sodium Chloride (Saline Flush) 10 ml FLUSH ASDIRECTED PRN PRN Reason: Keep Vein Open Timolol Maleate (Timoptic 0.5% Ophth Soln) 0 ml EYEBOTH BID [facility] Last Admin: 03/13/18 08:37 Dose: 1 drop Torsemide (Demadex) 40 mg PO BID [facility] Last Admin: 03/13/18 08:35 Dose: 40 mg Warfarin Sodium (Coumadin) 1 mg PO DAILY@1300 [facility] Last Admin: 03/13/18 13:52 Dose: 1 mg Discontinued Medications Azithromycin (Zithromax) 500 mg PO DAILY [facility] Last Admin: 03/12/18 09:07 Dose: 500 mg Azithromycin 500 mg/ Sodium (Chloride) 250 mls @ 250 mls/hr IV ONETIME ONE Stop: 03/08/18 19:59 Last Admin: 03/08/18 19:52 Dose: 250 mls/hr Ceftriaxone Sodium 2 gm/ (Sodium Chloride) 50 mls @ 100 mls/hr IV Q24H [facility] Last Admin: 03/11/18 17:14 Dose: 100 mls/hr Metoprolol Tartrate (Lopressor) 50 mg PO DAILY [facility] Last Admin: 03/09/18 08:22 Dose: 50 mg Non-Formulary Medication (Brimonidine Tartrate/Timolol [Combigan 0.2%-0.5% Eye Drops]) 1 drop EYEBOTH BID [facility] Phenytoin Sodium (Dilantin-125 Susp) 50 mg PO ONETIME ONE Stop: 03/08/18 21:01 Last Admin: 03/08/18 21:13 Dose: 50 mg Spironolactone (Aldactone) 25 mg PO DAILY [facility] Spironolactone (Aldactone) 25 mg PO ONETIME ONE Stop: 03/09/18 14:01 Last Admin: 03/09/18 14:00 Dose: 25 mg Warfarin Sodium (Coumadin) 3 mg PO ONETIME ONE Stop: 03/09/18 16:41 Last Admin: 03/09/18 17:15 Dose: 3 mg Warfarin Sodium (Coumadin) 2 mg PO DAILY@1300 [facility] Last Admin: 03/12/18 13:20 Dose: 2 mg - Exam Quality Assessment: DVT Prophylaxis General: Alert, Oriented, Cooperative, Mild Distress Lungs: Clear to Auscultation, Normal Respiratory Effort Cardiovascular: Regular Rate, Regular Rhythm, No Murmurs GI/Abdominal Exam: Soft, Non-Tender, No Organomegaly, No Distention Extremities: Non-Tender, Pedal Edema - Problem List Review Problem List Initiated/Reviewed/Updated: Yes - My Orders Last 24 Hours: My Active Orders 03/12/18 16:25 Morphine [Morphine 10 MG/0.5 ML Oral Syringe] 5 mg PO Q2H PRN 03/13/18 11:11 Codeine/guaiFENesin [Robitussin AC] 10 ml PO Q4H PRN 03/13/18 11:12 Peripheral IV Discontinue [OM.PC] Routine 03/13/18 13:00 Warfarin [Coumadin] 1 mg PO DAILY@1300 03/14/18 05:00 INR,PT,PROTHROMBIN TIME [COAG] Timed - Plan Plan:: ASSESSMENT AND PLAN - Left lower quadrant abdominal pain -resolved Acute cystitis - resolved -Discontinue antibiotic therapy Large right pleural effusion - history of heart failure with preserved ejection fraction and severe tricuspid regurgitation. Echocardiogram also showed biatrial enlargement, right ventricular enlargement, decreased right ventricular function, moderate AI, MS, and MR. Transudative effusion likely secondary to congestive heart failure. Symptomatically much better after thoracentesis initially. After discussion patient and family have decided to proceed with comfort cares only Heart failure with preserved ejection fraction - History of severe tricuspid regurgitation but has been well compensated recently. Echocardiogram results as above Edema has improved during the course of the hospital stay. She is using mechanical compression for the lower half of her legs. -Continue diuretics -Mechanical management of lower extremity edema/ stasis ulcers with Dr. Nevarez consultation -Continue medical management for congestive heart failure -Comfort cares only Chronic kidney disease stage III - creatinine near baseline at this time but slightly down from where she normally runs. 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 Continuing warfarin. Palliative care-patient and family have requested comfort cares only and hospice admission after discharge Maintenance issues - - DVT prophylaxis - warfarin - GI prophylaxis - not indicated - Nutrition - low sodium Disposition - I would anticipate discharge to assisted living facility with hospice admission
[2018-03-13] MEDS: Latanoprost 0.005% Ophth Soln 2.5 ML Bottle EYEBOTH SCH (21:16)
[2018-03-13] MEDS: PHENYTOIN 50 MG PO SCH (21:18)
[2018-03-14] MEDS: Morphine 10 MG/0.5 ML Oral Syringe PO PRN ×2 (01:18→08:18)
[2018-03-14] MEDS: Albuterol 0.083% 2.5 MG/3 ML Neb Soln NEB SCH ×2 (07:25→13:46)
[2018-03-14 07:55] VITALS: BP 109/52
[2018-03-14] MEDS: Phenytoin 100 MG Cap.ER PO SCH (08:11)
[2018-03-14] MEDS: Gabapentin 300 MG Cap PO SCH (08:11)
[2018-03-14] MEDS: Potassium Chloride 20 MEQ Tab.ER PO SCH (08:11)
[2018-03-14] MEDS: Allopurinol 100 MG Tab PO SCH (08:11)
[2018-03-14] MEDS: Torsemide 20 MG Tab PO SCH (08:11)
[2018-03-14] MEDS: Docusate Sodium 100 MG Cap PO SCH (08:12)
[2018-03-14] MEDS: Metoprolol Succinate 50 MG Tab.ER PO SCH (08:13)
[2018-03-14] MEDS: Timolol Maleate 0.5% Ophth Soln 5 ML Bottle EYEBOTH SCH (08:13)
[2018-03-14] MEDS: Brimonidine 0.2% Ophth Soln 5 ML Bottle EYEBOTH SCH (08:13)
[2018-03-14] MEDS: LORazepam 0.5 MG Tab PO PRN (08:59)
--- NOTE | 2018-03-14 12:39 | PCM.DCSUM1 ---
Discharge Summary - Hospital Course Brief History: Ms. Rowley is an 83-year-old woman who was admitted as a direct admission from the clinic with increased weakness, peripheral edema, and shortness of breath secondary to diastolic congestive heart failure. - Discharge Data Discharge Date: 03/14/18 Discharge Disposition: DC/Tfer to Hospice - Home 51 Condition: Poor - Discharge Diagnosis/Problem(s) (1) History of atrial fibrillation SNOMED Code(s): 133064771 ICD Code: Z86.79 - PERSONAL HISTORY OF OTHER DISEASES OF THE CIRCULATORY SYSTEM Status: Chronic (2) Severe tricuspid regurgitation SNOMED Code(s): 328124399 ICD Code: I07.1 - RHEUMATIC TRICUSPID INSUFFICIENCY Status: Chronic (3) Diastolic congestive heart failure, NYHA class 3 SNOMED Code(s): 602729810, 369728185, 441679238 ICD Code: I50.30 - UNSPECIFIED DIASTOLIC (CONGESTIVE) HEART FAILURE Status : Acute (4) Pleural effusion, right SNOMED Code(s): 22719516 ICD Code: J90 - PLEURAL EFFUSION, NOT ELSEWHERE CLASSIFIED Status: Acute (5) Peripheral edema SNOMED Code(s): 127055409 ICD Code: R60.9 - EDEMA, UNSPECIFIED Status: Acute (6) Venous stasis dermatitis of both lower extremities SNOMED Code(s): 09963228 ICD Code: I87.2 - VENOUS INSUFFICIENCY (CHRONIC) (PERIPHERAL) Status: Acute - Patient Summary/Data Consults: Consultations 03/08/18 18:15 Consult to Physician [CONS] Routine Consulting Provider: Renan Nevarez Call Completed to Consulting Physician: Yes Reason for Consult: wound care, bilateral lower legs Person Notified: RW Date Notified: 03/08/18 Special Instructions: will see in the morning 03/11/18 07:00 PT Evaluation and Treatment [CONS] Routine Please Evaluate and Treat. PT Reason for Consult: Strengthening This query below is only for informational purposes and is not editable. Admission Diagnosis/Problem: Acute cystitis with hematuria Hospital Course: Jocelyn presents to the hospital as a direct admission from the clinic. She presented to the clinic with concerns about persistent and severe bilateral lower extremity edema. While in the clinic she was noted to have a fever and appeared very short of breath. She reports chronic difficulty with lower extremity edema which has not been responding to medical management though she has not been completely compliant with the mechanical wrappings. She reports onset of shortness of breath last night as well as a mild nonproductive cough. She doesn't think she's been having any fevers and did not feel warm when her temperature was noted to be elevated to greater than 100 in the clinic today. No complaints of chest pain. She sleeps sitting up though she's not sure if she has orthopnea. She does report weakness and fatigue but these are chronic and not dramatically different than usual. Appetite is not great but that's her usual. No change in bowel or bladder habits and no dysuria or increased urinary frequency. In the clinic she had a chest x-ray which showed a moderate size right pleural effusion. White count was normal. Kidney function is near baseline with a GFR in the upper 30s. She was noted to be febrile and tachypneic. On admission she was given IV diuretic therapy and placed on a 2 g sodium diet. Because of her severe peripheral edema with venous stasis she was seen and evaluated by Dr. Nevarez and Unna boots were placed on both lower extremities. These interventions did result in good control of her peripheral edema. On evaluation she was also found to have evidence of urinary tract infection, cultures were negative and urine culture grew out pansensitive Escherichia coli. She completed a course of appropriate antibiotic therapy. Echocardiogram was obtained which did show evidence of diastolic dysfunction as well as biatrial enlargement and right ventricular enlargement with decreased right ventricular function and elevated right-sided pressures. She was also found to have severe tricuspid regurgitation, moderate mitral regurgitation with moderate aortic insufficiency and aortic stenosis. She did have respiratory symptoms through her hospital stay and was felt to have a probable viral respiratory tract infection, she was covered for the possibility of bacterial infection as well. Respiratory symptoms did improve modestly but she continued to experience shortness of breath with even minimal exertion. After discussion of results and ongoing management the patient and family felt that she would be best served by moving away from aggressive interventions and evaluation and focusing on comfort. She was converted to comfort cares only and will be admitted to hospice after discharge. Morphine and lorazepam will be used as needed for comfort. Activity will be as tolerated and she will be on a low-sodium diet. - Patient Instructions Diet: Low Sodium Activity: As Tolerated Other/Special Instructions: Admit to hospice after discharge from hospital - Discharge Plan *PRESCRIPTION DRUG MONITORING PROGRAM REVIEWED*: Not Applicable *COPY OF PRESCRIPTION DRUG MONITORING REPORT IN PATIENT LULY: Not Applicable Prescriptions/Med Rec: Codeine/guaiFENesin [Robitussin AC] 10 ml PO Q4H PRN #8 oz PRN Reason: Cough LORazepam 0.5 mg PO Q4H PRN #30 tab PRN Reason: Anxiety Metoprolol Succinate [Toprol XL 50mg] 50 mg PO DAILY #30 tab.er Morphine [Morphine 10 MG/0.5 ML Oral Syringe] 5 mg PO Q2H PRN #15 ml PRN Reason: Dyspnea Home Medications: Home Meds Allopurinol [Zyloprim] 100 mg PO DAILY 11/20/12 [History] Phenytoin Sodium Extended [Dilantin] 100 mg PO DAILY 11/20/12 [History] Docusate Sodium [Colace] 100 mg PO DAILY 01/09/13 [History] Multivitamin [Daily Multiple Vitamin] 1 tab PO DAILY 01/09/13 [History] Acetaminophen 650 mg PO Q4H PRN 03/29/16 [History] Cholecalciferol (Vitamin D3) [Vitamin D3] 2,000 units PO DAILY 03/29/16 [History ] Torsemide 40 mg PO BID 03/29/16 [History] Ascorbic Acid [Vitamin C] 500 mg PO DAILY 02/18/18 [History] Phenytoin 50 mg PO BEDTIME 02/18/18 [History] Potassium Chloride [Klor-Con 10] 20 meq PO BIDAC 02/18/18 [History] Warfarin Sodium 2 mg PO DAILY 03/06/18 [History] Brimonidine Tartrate/Timolol [Combigan 0.2%-0.5% Eye Drops] 1 drop EYEBOTH BID 03/08/18 [History] Gabapentin [Neurontin] 300 mg PO BID 03/08/18 [History] Latanoprost [Xalatan 0.005% Ophth Soln] 1 drop EYEBOTH BEDTIME 03/08/18 [History ] Codeine/guaiFENesin [Robitussin AC] 10 ml PO Q4H PRN #8 oz 03/13/18 [Rx] LORazepam 0.5 mg PO Q4H PRN #30 tab 03/13/18 [Rx] Metoprolol Succinate [Toprol XL 50mg] 50 mg PO DAILY #30 tab.er 03/13/18 [Rx] Morphine [Morphine 10 MG/0.5 ML Oral Syringe] 5 mg PO Q2H PRN #15 ml 03/13/18 [ Rx] - Discharge Summary/Plan Comment DC Time >30 min.: No - Patient Data Vitals - Most Recent: Last Vital Signs Temp 97.1 F 03/14/18 07:53 Pulse 60 03/14/18 08:13 Resp 20 03/14/18 07:53 BP 109/52 L 03/14/18 08:13 Pulse Ox 94 L 03/14/18 07:53 Weight - Most Recent: 176 lb 7.998 oz I&O - Last 24 hours: Intake & Output 03/13/18 03/14/18 03/14/18 22:59 06:59 14:59 Intake Total 300 500 470 Balance 300 500 470 Lab Results - Last 24 hrs: Laboratory Results - last 24 hr 03/14/18 Range/Units 05:00 PT 41.4 H (9.5-12.0) sec INR 4.08 H* (0.80-1.20) ANGELIKA Results - Last 24 hrs: Microbiology 03/08/18 18:30 Aerobic Blood Culture - Final Blood - Artery NO GROWTH AFTER 5 DAYS Anaerobic Blood Culture - Final NO GROWTH AFTER 5 DAYS 03/08/18 17:44 Aerobic Blood Culture - Final Blood - Venous NO GROWTH AFTER 5 DAYS Anaerobic Blood Culture - Final NO GROWTH AFTER 5 DAYS Med Orders - Current: Current Medications Acetaminophen (Tylenol) 650 mg PO Q4H PRN PRN Reason: Pain/Fever Last Admin: 03/11/18 09:47 Dose: 650 mg Albuterol (Proventil Neb Soln) 2.5 mg NEB Q4H PRN PRN Reason: shortness of breath/wheezing Last Admin: 03/09/18 22:21 Dose: 2.5 mg Albuterol (Proventil Neb Soln) 2.5 mg NEB QIDRT [facility] Last Admin: 03/14/18 07:25 Dose: 2.5 mg Allopurinol (Zyloprim) 100 mg PO DAILY [facility] Last Admin: 03/14/18 08:11 Dose: 100 mg Benzonatate (Tessalon Perles) 100 mg PO TID PRN PRN Reason: Cough Last Admin: 03/13/18 18:19 Dose: 100 mg Brimonidine Tartrate (Alphagan 0.2% Ophth Soln) 0 ml EYEBOTH BID [facility] Last Admin: 03/14/18 08:13 Dose: 1 drop Docusate Sodium (Colace) 100 mg PO DAILY [facility] Last Admin: 03/14/18 08:12 Dose: 100 mg Gabapentin (Neurontin) 300 mg PO BID [facility] Last Admin: 03/14/18 08:11 Dose: 300 mg Guaifenesin (Robitussin) 200 mg PO Q4H PRN PRN Reason: Cough Last Admin: 03/13/18 08:29 Dose: 200 mg Guaifenesin/Codeine Phosphate (Robitussin Ac) 10 ml PO Q4H PRN PRN Reason: Cough Last Admin: 03/13/18 18:19 Dose: 10 ml Latanoprost (Xalatan 0.005% Ophth Soln) 0 ml EYEBOTH BEDTIME [facility] Last Admin: 03/13/18 21:16 Dose: 1 drop Lorazepam (Ativan) 0.5 mg PO Q4H PRN PRN Reason: Anxiety Last Admin: 03/14/18 08:59 Dose: 0.5 mg Magnesium Hydroxide (Milk Of Magnesia) 30 ml PO Q12H PRN PRN Reason: Constipation Metoprolol Succinate (Toprol Xl) 50 mg PO DAILY [facility] Last Admin: 03/14/18 08:13 Dose: 50 mg Morphine Sulfate (Morphine 10 Mg/0.5 Ml Oral Syringe) 5 mg PO Q2H PRN PRN Reason: Dyspnea Last Admin: 03/14/18 08:18 Dose: 5 mg Ondansetron HCl (Zofran Odt) 4 mg PO Q6H PRN PRN Reason: Nausea able to take PO Phenytoin 50mg Chew (Tab (Ptom)) 0 each PO BEDTIME [facility] Last Admin: 03/13/18 21:18 Dose: 1 each Phenytoin Sodium (Phenytoin) 100 mg PO DAILY [facility] Last Admin: 03/14/18 08:11 Dose: 100 mg Polyethylene Glycol (Miralax) 17 gm PO DAILY PRN PRN Reason: Constipation Potassium Chloride (Klor-Con M20) 20 meq PO BIDMEALS [facility] Last Admin: 03/14/18 08:11 Dose: 20 meq Sodium Chloride (Saline Flush) 10 ml FLUSH ASDIRECTED PRN PRN Reason: Keep Vein Open Timolol Maleate (Timoptic 0.5% Ophth Soln) 0 ml EYEBOTH BID [facility] Last Admin: 03/14/18 08:13 Dose: 1 drop Torsemide (Demadex) 40 mg PO BID [facility] Last Admin: 03/14/18 08:11 Dose: 40 mg Discontinued Medications Azithromycin (Zithromax) 500 mg PO DAILY [facility] Last Admin: 03/12/18 09:07 Dose: 500 mg Azithromycin 500 mg/ Sodium (Chloride) 250 mls @ 250 mls/hr IV ONETIME ONE Stop: 03/08/18 19:59 Last Admin: 03/08/18 19:52 Dose: 250 mls/hr Ceftriaxone Sodium 2 gm/ (Sodium Chloride) 50 mls @ 100 mls/hr IV Q24H [facility] Last Admin: 03/11/18 17:14 Dose: 100 mls/hr Metoprolol Tartrate (Lopressor) 50 mg PO DAILY [facility] Last Admin: 03/09/18 08:22 Dose: 50 mg Non-Formulary Medication (Brimonidine Tartrate/Timolol [Combigan 0.2%-0.5% Eye Drops]) 1 drop EYEBOTH BID [facility] Phenytoin Sodium (Dilantin-125 Susp) 50 mg PO ONETIME ONE Stop: 03/08/18 21:01 Last Admin: 03/08/18 21:13 Dose: 50 mg Spironolactone (Aldactone) 25 mg PO DAILY [facility] Spironolactone (Aldactone) 25 mg PO ONETIME ONE Stop: 03/09/18 14:01 Last Admin: 03/09/18 14:00 Dose: 25 mg Warfarin Sodium (Coumadin) 3 mg PO ONETIME ONE Stop: 03/09/18 16:41 Last Admin: 03/09/18 17:15 Dose: 3 mg Warfarin Sodium (Coumadin) 2 mg PO DAILY@1300 [facility] Last Admin: 03/12/18 13:20 Dose: 2 mg Warfarin Sodium (Coumadin) 1 mg PO DAILY@1300 [facility] Last Admin: 03/13/18 13:52 Dose: 1 mg - Exam Quality Assessment: Reports: Supplemental Oxygen, DVT Prophylaxis General: Reports: Alert, Cooperative, Moderate Distress Lungs: Reports: Decreased Breath Sounds, Wheezing. Denies: Rales, Rhonchi Cardiovascular: Reports: Regular Rate, Regular Rhythm, Murmurs GI/Abdominal Exam: Soft, Non-Tender, No Organomegaly, No Distention Extremities: Pedal Edema, Redness Skin: Reports: Warm, Dry
== END 2018-03-14 11:10 | disposition hospice, home (50) | DRG 292 ==
LOC: JP.MS 16:32
PROVIDERS: ADMIT Internal Medicine; ATTEND Hospitalist
PROC: 0W993ZX Drainage of Right Pleural Cavity, Percutaneous Approach, Diagnostic (ICD-10-PCS; principal; 2018-03-09)
DX: I50.30 Unspecified diastolic (congestive) heart failure (principal); N30.01 Acute cystitis with hematuria; J90 Pleural effusion, not elsewhere classified; Z51.5 Encounter for palliative care; Z66 Do not resuscitate; B96.20 Unspecified Escherichia coli [E. coli] as the cause of diseases classified elsewhere; I87.2 Venous insufficiency (chronic) (peripheral); J40 Bronchitis, not specified as acute or chronic; N18.3 Chronic kidney disease, stage 3 (moderate); I48.91 Unspecified atrial fibrillation; Z79.01 Long term (current) use of anticoagulants; E78.5 Hyperlipidemia, unspecified; I89.0 Lymphedema, not elsewhere classified; I36.1 Nonrheumatic tricuspid (valve) insufficiency; I35.2 Nonrheumatic aortic (valve) stenosis with insufficiency; I34.0 Nonrheumatic mitral (valve) insufficiency; R10.32 Left lower quadrant pain; Z86.718 Personal history of other venous thrombosis and embolism; Z87.01 Personal history of pneumonia (recurrent); Z95.0 Presence of cardiac pacemaker; H54.7 Unspecified visual loss; H91.90 Unspecified hearing loss, unspecified ear; Z90.710 Acquired absence of both cervix and uterus; Z87.442 Personal history of urinary calculi; Z88.1 Allergy status to other antibiotic agents; Z88.8 Allergy status to other drugs, medicaments and biological substances; B97.89 Other viral agents as the cause of diseases classified elsewhere; J98.8 Other specified respiratory disorders
CPT/HCPCS: 36415; 71046; 71046-26; 71250; 74176; 80048; 83605; 83735; 85025; 85027; 85610; 87040; 87070; 87086; 87088; 87186; 87205; 87804; 87804-59; 89050; 93306; 94640; 94667; 97110-GP; 97162-GP; 97530-GP; A9270-GY; J0456; J0696; J7050